=== PATIENT | female | born 1960 | race Caucasian/White ===

== ENCOUNTER 2018-08-19 19:32 | Emergency (ER) | payer BC ==
[2018-08-19 19:50] VITALS: BP 158/90
--- NOTE | 2018-08-19 20:02 | ED ---
HPI Chest Pain - HPI Summary HPI Summary: 57 yr old female with the complaint of pain across chest intermittently described as pressure, that has come and gone today, associated with hot flushed feeling, dizziness and at times SOB. She states this evening she had some pain in between her shoulder blades that felt like an ache. Presently she reports she feels fine without pain. She denies ever having discomfort like this before. - History of Current Complaint Chief Complaint: UCChestPain Time Seen by Provider: 08/19/18 19:36 Hx Last Menstrual Period: N/A Pain Intensity: 3 - Allergy/Home Medications Allergies/Adverse Reactions: Allergies Allergy/AdvReac Type Severity Reaction Status Date / Time Iodinated Contrast- Oral and Allergy Severe respiratory/"thought Verified 19:50 IV Dye I was going to " sumatriptan [From Imitrex] Allergy Severe "throat Verified 08/19/18 19:50 feels tight" Home Medications: Home Medications Benazepril (NF) [Lotensin (NF)] 5 mg PO DAILY 08/19/18 [History Confirmed ] Anjum/D3/Mag11/Zinc/Export Specialist/Kaushik/Bor [Caltrate 600+D Plus] 1 tab PO DAILY 08/19/18 [ History Confirmed 08/19/18] PMH/Surg Hx/FS Hx/Imm Hx Cardiovascular History: Reports: Hx Hypertension - Cancer History Hx Chemotherapy: No Hx Radiation Therapy: No - Surgical History Surgery Procedure, Year, and Place: uterine ablation, rt breast fibroid removed , wisdom teeth Infectious Disease History: No Infectious Disease History: Denies: Hx Clostridium Difficile, Hx Hepatitis, Hx Human Immunodeficiency Virus (HIV), Hx of Known/Suspected MRSA, Hx Shingles, Hx Tuberculosis, Hx Known/ Suspected VRE, Hx Known/Suspected VRSA, History Other Infectious Disease, Traveled Outside the [place] in Last 30 Days - Family History Known Family History: Positive: Other - hypertension - Social History Lives: With Family Alcohol Use: Rare Substance Use Type: Reports: None Smoking Status (MU): Never Smoked Tobacco Review of Systems Constitutional: Negative Positive: Chest Pain All Other Systems Reviewed And Are Negative: Yes Physical Exam Triage Information Reviewed: Yes Vital Signs On Initial Exam: Initial Vitals Temp Pulse Resp BP Pulse Ox 98.4 F 66 16 158/90 100 08/19/18 19:35 08/19/18 19:35 08/19/18 19:35 08/19/18 19:35 08/19/18 19:35 Vital Signs Reviewed: Yes Appearance: Positive: Well-Appearing, No Pain Distress Skin: Positive: Warm, Skin Color Reflects Adequate Perfusion Head/Face: Positive: Normal Head/Face Inspection Eyes: Positive: EOMI ENT: Positive: Normal ENT inspection, Pharynx normal Neck: Positive: Supple, Nontender Respiratory/Lung Sounds: Positive: Clear to Auscultation, Breath Sounds Present Cardiovascular: Positive: RRR. Negative: Murmur Abdomen Description: Positive: Nontender Musculoskeletal: Positive: Strength/ROM Intact Neurological: Positive: Sensory/Motor Intact, Alert, Oriented to Person Place, Time, CN Intact II-III, Normal Gait, Speech Normal Psychiatric: Positive: Normal - [place] Coma Scale Best Eye Response: 4 - Spontaneous Best Motor Response: 6 - Obeys Commands Best Verbal Response: 5 - Oriented Coma Scale Total: 15 Diagnostics - Vital Signs Vital Signs Temp Pulse Resp BP Pulse Ox 08/19/18 19:35 98.4 F 66 16 158/90 100 - Laboratory Lab Statement: Any lab studies that have been ordered have been reviewed, and results considered in the medical decision making process. - EKG 08/19/18 Cardiac Rate: NL EKG Rhythm: Sinus Rhythm ST Segment: Normal Ectopy: None Chest Pain Course/Dx - Course Course Of Treatment: 57 yr old female with history of HTN and having CP today. recommend ambulance and ER evaluation. She signed out AMA refusing transfer by ambulance to the hospital. - Diagnoses Provider Diagnoses: Chest pain, Hypertension Discharge - Sign-Out/Discharge Documenting (check all that apply): Patient Departure All imaging exams completed and their final reports reviewed: No Studies - Discharge Plan Condition: Good Disposition: AGAINST MEDICAL ADVICE Referrals: Eddie Kaur MD [Primary Care Provider] - - Billing Disposition and Condition Condition: GOOD Disposition: Against Medical Advice
== END 2018-08-19 20:00 | disposition left against medical advice (07) ==
LOC: UCCORT 19:32
DX: R07.9 Chest pain, unspecified (principal); I10 Essential (primary) hypertension; Z88.8 Allergy status to other drugs, medicaments and biological substances; Z91.041 Radiographic dye allergy status
CPT/HCPCS: 93005; 99212; G0463

== ENCOUNTER 2018-10-11 07:18 | Emergency (ER) | payer BC ==
--- OUTSIDE RECORDS SUMMARY | 2018-10-11 07:33 | XMS REPORT ---
:1960 External Reference #:[id number] Author Organization [facility] 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 Eddie Kaur MD Primary Care Physician Unavailable Payers Type Date Identification Numbers Payment Provider Subscriber Commercial Policy Number: [id number] Tray Barrios PayID: [id number] [address] [address] [place] [address] Problems Date Description Provider Status Onset: 10/05/2018 Gallstone Mike Machuca MD,FACS Active Onset: 09/10/2018 Disorder of gallbladder Mike Machuca MD,FACS Active Family History Date Family Member(s) Problem(s) Comments : (age 77 Years) Mother due to Cancer Paternal Grandfather Heart Disease Paternal Grandmother Cancer Maternal Grandmother Diabetes Social History Type Date Description Comments 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-handed ETOH Use Rarely consumes alcohol Smoking Patient denies history of smoking Recreational Drug Use Never Used Drugs Daily Caffeine Patient consumes minimal amounts of caffeine Allergies, Adverse Reactions, Alerts Date Description Reaction Status Severity Comments 09/10/2018 Contrast Dye active 09/10/2018 Coffee active 09/10/2018 Imitrex active Medications Medication Date Status Form Strength Qnty SIG Indications Ordering Provider Fish Oil Active Capsules 1000mg by Unknown 000 mouth every day Vitamin D3 Active Capsules 1000Unit 1 by Unknown 000 mouth every day Vitamin B12 Active Tablets ER 1000mcg 1 by Unknown 000 mouth once a day Caltrate 600 Active Tablets 1500(600Ca) 1 tab Unknown 000 mg by mouth every day Benazepril HCL Active Tablets 5mg 1 by Unknown 000 mouth every day Pantoprazole Active Tablets DR 40mg 1 by Unknown Sodium 000 mouth every day Vital Signs Date Vital Result Comment 10/05/2018 BP Systolic Sitting Right Arm 149 mmHg BP Diastolic Sitting Right Arm 82 mmHg Body Temperature 100.5 F Heart Rate 94 /min Height 62.5 inches 5'2.50" Weight 120.50 lb BMI (Body Mass Index) 21.7 kg/m2 BSA (Body Surface Area) 1.55 m2 [place] body weight in kilograms 51 O2 % BldC Oximetry 97 % 09/10/2018 BP Systolic 146 mmHg BP Diastolic 84 mmHg Heart Rate 60 /min Respiratory Rate 17 /min Height 62.5 inches 5'2.50" Weight 122.00 lb BMI (Body Mass Index) 22.0 kg/m2 BSA (Body Surface Area) 1.56 m2 [place] body weight in kilograms 51 O2 % BldC Oximetry 99 % Results Test Date Test Result H/L Range Note Comp Metabolic Panel 08/23/2018 Sodium 138 mmol/L 135-145 Chloride 100 mmol/L Low 101-111 Co2 Carbon Dioxide 32 mmol/L 22-32 Glucose 96 mg/dL 70-100 Blood Urea Nitrogen 13 mg/dL 6-24 Creatinine 0.62 mg/dL 0.51-0.95 BUN/Creatinine Ratio 21.0 High 8-20 Calcium 9.8 mg/dL 8.6-10.3 Total Protein 6.7 g/dL 6.4-8.9 Albumin 4.7 g/dL 3.2-5.2 Globulin 2.0 g/dL 2-4 Albumin/Globulin Ratio 2.4 1-3 Total Bilirubin 1.70 mg/dL High 0.2-1.0 Alkaline Phosphatase 80 U/L 34-104 Alt 23 U/L 7-52 Ast 20 U/L 13-39 Egfr Non- 99.2 >60 Egfr 120.1 >60 1 Potassium 5.1 mmol/L High 3.5-5.0 Anion Gap 6 mmol/L 2-11 Laboratory test finding 08/23/2018 C Reactive Protein 1.30 mg/L <8.01 CBC Auto Diff 08/23/2018 White Blood Count 5.8 10^3/uL 3.5-10.8 Red Blood Count 4.55 10^6/uL 4.00-5.40 Hemoglobin 13.5 g/dL 12.0-16.0 Hematocrit 40 % 35-47 Mean Corpuscular Volume 88 fL 80-97 Mean Corpuscular Hemoglobin 30 pg 27-31 Mean Corpuscular HGB Conc 34 g/dL 31-36 Red Cell Distribution Width 13 % 10.5-15 Platelet Count 250 10^3/uL 150-450 Mean Platelet Volume 10.0 um3 7.4-10.4 Abs Neutrophils 2.8 10^3/uL 1.5-7.7 Abs Lymphocytes 2.4 10^3/uL 1.0-4.8 Abs Monocytes 0.4 10^3/uL 0-0.8 Abs Eosinophils 0.1 10^3/uL 0-0.6 Abs Basophils 0 10^3/uL 0-0.2 Abs Nucleated RBC 0 10^3/uL Granulocyte % 48.4 % 38-83 Lymphocyte % 41.9 % 25-47 Monocyte % 7.1 % High 0-7 Eosinophil % 2.1 % 0-6 Basophil % 0.5 % 0-2 Nucleated Red Blood Cells % 0.1 CBC W/Automated Diff 08/20/2018 White Blood Count 5.4 K/uL 3.1-10.7 2 Red Blood Count 5.11 M/uL 3.90-5.40 2 Hemoglobin 15.2 gm/dL 11.6-15.8 2 Hematocrit 45.4 % 36.0-46.1 2 Mean Cell Volume 88.8 fl 80.9-99.0 2 Mean Corpuscular HGB 29.7 pg 25.9-32.7 2 Mean Corpuscular HGB Conc 33.5 g/dL 30.8-34.3 2 Platelet Count 272 K/uL 155-360 2 Red Cell Distri Width SD 41.1 fl 3-47 2 Red Cell Distri Width %CV 12.9 % 11.7-14.4 2 Mean Platelet Volume 11.5 fL 8.9-12.4 2 Neut% 50.9 % 40.4-72.8 2 Lymph % 40.5 % 20.0-42.0 2 [place] % 6.5 % 4.3-13.2 2 Eo% 1.7 % 0.0-6.6 2 Bas% 0.4 % 0.0-1.1 2 Neut# 2.74 K/uL 1.8-7.0 2 Lymph # 2.18 K/uL 1.0-4.0 2 [place] # 0.35 K/uL 0.3-0.9 2 Eos # 0.09 K/uL 0.0-0.5 2 Baso # 0.02 K/uL 0.0-0.1 2 Laboratory test finding 08/20/2018 Troponin-I < 0.015 ng/mL 2, 3 Comprehensive Metabolic Panel 08/20/2018 Glucose 126 mg/dL High 74-106 2 BUN 11 mg/dL 7-18 2 Creatinine 0.7 mg/dL 0.6-1.3 2 Glom Filtration Rate, Estimate >60 mL/min >60 2 If >60 mL/min >60 2, 4 BUN/Creat 15.7 ratio 2 Sodium 141 mmol/L 136-145 2 Potassium 3.9 mmol/L 3.5-5.1 2 Chloride 104 mmol/L 98-107 2 Carbon Dioxide 31 mmol/L 21-32 2 Anion Gap 6 mEq/L Low 8-16 2 Calcium 9.4 mg/dL 8.5-10.1 2 Total Protein 8.1 g/dL 6.4-8.2 2 Albumin 4.1 g/dL 3.4-5.0 2 Globulin 4.0 g/dL 1.9-4.3 2 Alb/Glob 1.0 ratio 2 Bilirubin,Total 2.4 mg/dL High 0.2-1.0 2 Sgot/Ast 21 U/L 15-37 2 SGPT/Alt 35 U/L 12-78 2 Alkaline Phosphatase 92 U/L 45-117 2 Laboratory test finding 08/20/2018 Magnesium 2.3 mg/dL 1.8-2.4 2 Lipase 146 U/L 56-289 2 1 Because ethnic data is not always readily available, this report includes an eGFR for both -Americans and non- Americans. The National Kidney Disease Education Program (NKDEP) does not endorse the use of the MDRD equation for patients that are not between the ages of 18 and 70, are , have extremes of body size, muscle mass, or nutritional status, or are non- or non-. According to the National Kidney Foundation, irrespective of diagnosis, the stage of the disease is based on the level of kidney function: Stage Description GFR(mL/min/1.73 m(2)) 1 Kidney damage with normal or decreased GFR 90 2 Kidney damage with mild decrease in GFR 60-89 3 Moderate decrease in GFR 30-59 4 Severe decrease in GFR 15-29 5 Kidney failure <15 (or dialysis) 2 UPPER ABDOMENAL/CHEST PAIN 3 0.0 - 0.045 ng/mL: Normal 0.046 - 0.5 ng/mL: Suggestive 0.6 - 1.5 ng/mL: Consistent 4 Note: Persistent reduction for 3 months or more in an eGFR <60 mL/min/1.73 m2 defines CKD. Patients with eGFR values >/=60 mL/min/1.73 m2 may also have CKD if evidence of persistent proteinuria is present. The original MDRD equation for estimated GFR is not valid for patients less than 18 years of age. Additional information may be found at www.kdoqi.org. Procedures Date CPT Code Description Status 09/23/2018 95311 Cholecystectomy with cholangiography Completed Encounters Type Date Location Provider CPT E/M Dx Office Visit 09/10/2018 8:15a Surgical Office Mike Machuca MD,FACS [id number] K82.8 Plan of Care 10/05/2018 - Mike Machuca MD,[id number] Calculus of gallbladder w/o cholecystitis w/o obstructionComments:now s/p laparoscopic cholecystectomy, doing well. healing well. pathology report was reviewed and discussed with the patient. her intermittent low grade fever in the last few days, does not seem to be abdominal in origin. if it persists i recommended that she follows with her primary care provider.
--- OUTSIDE RECORDS SUMMARY | 2018-10-11 07:33 | XMS REPORT | Continuity of Care Document ---
:1960 External Reference #:[id number] Author Name Eddie Kaur M.D. Address [address] [facility] [address] [place] [address] Care Team Providers Name Role Phone HCP given Primary Care Physician Unavailable Payers Type Date Identification Numbers Payment Provider Subscriber Effective: Policy Number: [id number] Tray Barrios 2011 Ind/Ppo/Hmo/Pos Group Name: [employer] [address] [address] PayID: [id number] [place] [address] Advance Directives Description No Information Available Problems Date Description Provider Status Onset: 11/20/2003 Excessive and frequent menstruation Onofre Sesay M.D. Active Onset: 11/20/2003 Migraine with typical aura Onofre Sesay M.D. 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 Active Onset: 03/15/2013 Arthralgia of the pelvic region and Marlyn Martin MD Active thigh Onset: 04/02/2013 Irritable bowel syndrome Onofre Sesay M.D. Active Onset: 04/02/2013 Degenerative joint disease Onofre Sesay M.D. Active involving multiple joints Onset: 04/02/2013 Thoracogenic scoliosis Onofre Sesay M.D. Active Family History Date Family Member(s) Problem(s) Comments Father Hypertension Father Low HDL Onset: Father [place] non smoker other cigars - (02/01/2015) lipids unknown - has hbp Father 1940 Father General health good Onset: (2006) Mother Pancreatic Cancer partial pancreatectomy Onset: Mother myelofibrosis bone marrow is affected (01/07/2011) may need bone marrow transplant Onset: (age 62 Mother cancer anus Years) Mother Hypertension Mother Diabetes, NOS Mother Nathalie Farnsworth Mother 1940 Mother General health good First Brother Allergies/Asthma First Brother Hypertension First Brother Jet Farnswotrh First Brother 1961 First Brother General chhaya good Paternal Grandfather due to Cancer () - AGE 81 Onset: (age 81 Paternal Grandfather Heart Disease mi Years) Paternal Grandfather Stroke Paternal Grandfather due to cancer - age 81 Paternal Grandmother due to Cancer () - AGE 80 Paternal Grandmother Heart Disease Paternal Grandmother due to cancer - age 80 Maternal Grandmother due to () Age 90 Maternal Grandmother Glaucoma Maternal Grandmother age 90 Social History Type Date Description Comments Sex Unknown Education Highest Level bachelor's degree Completed College Marital Status Smoke-Free Home is smoke-free 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 Abuse No history of abuse Tobacco Use Start: Unknown Smoked Cigarette X 1 as A Teen Recreational Drug Use Denies Drug Use Tobacco Use Reviewed: 02/01/15 Patient has never smoked Smoking Status Reviewed: 11/11/17 Patient has never smoked Sun Exposure Uses Suncreen Seat Belt/Car Seat always uses seat belt Currently Active Patient is currently sexually active Contraceptive Methods Current methods include vasectomy Age 1st [place] 17 Years Old # Partners in a Lifetime over 5 Additional Info Sexual preference is men Allergies, Adverse Reactions, Alerts Date Description Reaction Status Severity Comments 05/16/2010 Isovue Active 05/16/2010 Imitrex Active 08/24/2017 Anesthesia Active vomiting 08/28/2003 NKDA Inactive Medications Medication Date Status Form Strength Qnty SIG Indications Ordering Provider Fluticasone 10/05 Active Suspension 50mcg/Act 16uni two sprays J01.90 Silcoff, Propionate ts (50 Eddie, mcg/spray) M.D. per nostril once daily (can also try one spray per nostril bid) for allergies Benzonatate 10/05 Active Capsules 200mg 21cap 1 cap up R05 Silcoff, s to three Eddie, times a M.D. day for cough, when no longer productive Diclofenac Sodium 10/05 Active Gel 1% 100gm apply 2-3 M25.512 Silco g of gel Eddie, to M.D. affected area 4 times daily Sucralfate 08/23 Active Tablets 1gm 1 tablet by mouth four times a day Pantoprazole 08/[address] 40mg Daily Unknown Benazepril HCL 11/16 Active Tablets 5mg 90tab 1 every I10 Silco s day for Eddie, elevated M.D. blood pressure Fish Oil 03/26 Active po daily Vitamin D3 03/26 Active Tablets 1 po daily Unknown Caltrate 600 03/26 Active Tablets 1500(600C po daily a) mg Vitamin B-12 03/26 Active Tablets 500mcg po daily Unknown Diclofenac Sodium 10/05 Hx Solution 1.5% 150ml apply M25.512 Silcoff08-23 Eddie, - drops to M.D. 10/05 affected shoulder 4 times daily Amlodipine 11/10 Hx Capsules 2.5-10mg 60cap start one I10 Silcoff, Besylate/Benazepr s capsule jeremy Morgan Hydrochloride - every M.D. 11/16 7 days then 2 every morning Hydrochlorothiazi 11/05 Hx Tablets 25mg 90tab 1 tab by R03.0 Vincent, s mouth Eddie, - every M.D. 08/20 for high blood pressure Nystatin 09/28 Hx Suspension [id number] 250ml 5 R20.2 Vincent t/ML milliliter Eddie, - s (tsp) M.D. 09/28 four times a day for thrush, swish and swallow, use until resolved for at least 2 days Hydrochlorothiazi 09/28 Hx Tablets 12.5mg 60tab 1 tab by R03.0 Vincent s mouth Eddie, - every M.D. 11/05 7 days then increase to 2 qam for high blood pressure Collagen Ultra 10/09 Hx Capsules one po Unknown (OTC) daily - 08/23 Fluticasone 08/25 Hx Suspension 50mcg/Act 3unit 2 sprays J01.00 S[place]chak , Propionate s into each Juvencio, - nostril D.O. 09/04 twice a day for nasal congestion . derrick allergies. rinse mouth post Amoxicillin/Clavu 08/20 Hx Tablets 875-125mg 20tab 1 tablet Unknown lanate Potassium /2014 s po twice - daily x 10 Amoxicillin/Clavu 12/03 Hx Tablets 875-125mg 20tab 1 tab po 461.1 Silcoff, lanate Potassium s bid x 10d Tash Morgan M.DZhang 12/12 Lomotil 04/02 Hx Tablets 2.5-0.025 100ta 1 qid prn 564.1 mg bs abdominal A. - trouble Dayanara, 03/07 M.D. Protonix 01/[address] 40mg 30tab 1 qd for 789.07 s reflux for A. - esophagus Dayanara, 04/09 M.D. Amoxicillin/Potas 08/11 Hx Tablets 875mg 20tab one tablet 461.2 Howson, sium Clavulanate /2008 s po bid Colleen STROUD - with food 08/21 Augmentin 01/26 Hx Tablets 875mg 20tab 1 po bid 461.0 s Nellie Sesay, 02/05 M.D. Amoxicillin 10/27 Hx 500mg 30uni 1 tid 461.2 ts until gone Nellie Sesay, 11/10 M.D. Calcium Magnesium 05/07 Hx Tablets 334-134-5 OTC as Unknown & Zinc /2006 mg directed - 03/27 Advair Diskus 03/13 Hx Misc 250/50 1Samp 1 786.2 , le Inhalation Eddie, - bid M.D. 03/27 Nizoral 03/13 Hx Cream 2% 30gm Apply To 690.11 Affected Eddie, - Area On M.D. 05/16 Scalp bid prn Amoxil 03/01 Hx Tablets 500mg 30tab 1 po tid peri, s for 10 Eddie, - days for M.D. 03/11 sinusitis /2006 Ferrous Gluconate 02/02 Hx Tablets 325mg otc 1 PO qd 626.2 Milka Ballard - Dayanara 01/26 Francie 280.9 Propranolol 04/01/2006 - Hx Tablets 40mg 90tabs 1 po qd 346.10 Silcoff, 06/15/2006 Francie Morgan Amoxicillin 01/17/2006 - Hx Tablets 500mg 30tabs 1 PO tid For 461.1 Silcoff, 01/27/2006 Sinusitis Francie Morgan Inderal La 10/01/2005 - Hx Capsules 80mg 90caps 1 po qd to 346.10 Silcoff, 04/01/2006 pevent Eddie headaches Francie Propranolol 08/08/2005 - Hx Tablets 40mg 60tabs 1 po bid for 346.10 Silcoff, 10/01/2005 migraine Eddie prevention Francie Phenergan 08/08/2005 - Hx Suppositor 25mg 6units 1 pr q6h prn 346.10 Silcoff, 05/16/2010 for nausea Francie Morgan Relpax 07/11/2005 - Hx Tablets 40mg 12tabs 1 pill daily 784.0 Silcoff, 01/26/2009 as needed for kasey Morgans; may Francie repeat dose after 2 hours; do not take within 24hrs of maxalt 346.10 Biaxin 06/02/2005 - Hx Tablets 250mg 50tabs 1 po bid 461.1 Onofre Ballard 06/23/2005 until gone Francie Sesay Doxycycline 11/14/2004 - Hx Capsules 100mg 20caps 1 bid for ten 487.1 Onofre Ballard Hyclate 11/21/2004 days Francie Sesay void after ten days Biaxin 08/26/2004 - Hx Tablets 250mg 20tabs 1 po bid 461.0 Onofre Ballard 06/02/2005 until gone Dayanara for nasal M.D. congestion and sinuses Clarinex 10 MG 08/24/2004 - Hx Tablets 10mg 90tabs 1 po qd 477.9 Onofre Ballard 08/26/2004 Francie Sesay Augmentin 08/17/2004 - Hx Tablets 875mg 20tabs 1 po bid 461.0 dayanara 08/24/2004 Darvocet N 100 05/29/2004 - Hx Tablets 100mg;65 100tabs 1 qid prn 789.09 Onofre Ballard 08/26/2004 0 mg pain Francie Sesay Axert 05/04/2004 - Hx Tablets 12.5mg 4sample 1 po prn 346.10 Silcoff, 08/07/2004 migraine, march Eddie, repeat in 2 M.D. hours Phenergan 05/04/2004 - Hx Tablets 25mg 5tabs 1 po q4h prn 346.10 Silcoff, 08/26/2004 for migraines Francie Morgan Amoxicillin 03/26/2004 - Hx Capsules 500mg 30caps 1 tid For Ten 465.9 Onofre Ballard 05/04/2004 Days Francie Sesay Amoxil 12/08/2003 - Hx Tablets 500mg 30tabs 1 PO tid 784.0 Onofre Ballard 12/18/2003 Francie Sesay Provera 12/07/2003 - Hx Tablets 5mg 0tabs 1 PO qd Onofre Ballard 03/26/2004 7Bdays Each Ke Sesay M.DZhang Ibuprofen 12/07/2003 - Hx Tablets 800mg 45tabs 1 po tid 346.00 Onofre Ballard 05/04/2004 p.c.for pain Dayanara, or at onset M.D. of migraine Maxalt TAIL SAWYER 12/07/2003 - Hx Tablets 10mg 15tabs 1prn for 346.00 Onofre Ballard 01/26/2009 migraine as Dayanara directed BradenD. Ferrous 11/20/2003 - Hx Tablets 325mg 0tabs 2 qd 626.2 Onofre Ballard Sulfate 02/02/2007 Francie Sesay 280.9 Imitrex 11/20/2003 - Hx Tablets 50mg 10tabs 1 prn at first 346.00 Onofre Ballard 08/24/2004 sign of Dayanara, migraine, march M.D. repeat prn after 2 hours Provera 11/20/2003 - Hx Tablets 10mg 40tabs 1 qd for the 626.2 Onofre Ballard 12/07/2003 last ten days Dayanara, before your M.D. period Ginko Biloba - Hx Unknown 05/16/2010 Multivitamins - Hx Tablets 30tabs 1 po qd Unknown 07/10/2011 Immunizations CPT Code Status Date Vaccine Lot # [id number] Given 09/18/2018 Influenza Virus Vaccine, Quadrivalent, Split, Preservative Free 26972 Given 09/05/2017 Flu, Split Virus 3Yrs 92827 Given 08/29/2015 Flu, Split Virus 3Yrs 38108 Given 10/23/2014 Hep B Immunization, Adult 68248 Given 01/07/2011 Adacel or Boostrix, TDaP [id number] 82828 Given 05/25/2008 Td Immunization Td-187 03491 Given 09/07/2000 Td Immunization 80832 Refused 07/27/2014 Flu, Split Virus 3Yrs 78780 Refused 01/26/2014 Flu, Split Virus 3Yrs Vital Signs Date Vital Result Comment 10/05/2018 11:38am BP Systolic 130 mmHg BP Diastolic 70 mmHg Body Temperature 98.6 F Weight 122.00 lb 08/26/2018 3:53pm BP Systolic 130 mmHg BP Diastolic 74 mmHg Height 62.50 inches 5'2.50" Weight 120.00 lb BMI (Body Mass Index) 21.6 kg/m2 11/10/2017 4:37pm BP Systolic 132 mmHg BP Diastolic 70 mmHg O2 % BldC Oximetry 98 % Body Temperature 77.0 F Weight 123.00 lb 10/22/2017 3:51pm BP Systolic 140 mmHg BP Diastolic 88 mmHg Weight 121.00 lb 09/28/2017 3:55pm BP Systolic 130 mmHg office electronic cuff; manual 118/ 80 BP Diastolic 83 mmHg office electronic cuff; manual 118/80 BP Systolic Recheck 120 mmHg wrist cuff; 133/97 BP Diastolic Recheck 91 mmHg wrist cuff; 133/97 Heart Rate 73 /min Weight 123.00 lb 09/05/2017 11:22am BP Systolic 148 mmHg pt wrist monitor 112/92 BP Diastolic 84 mmHg pt wrist monitor 112/92 Heart Rate 68 /min Weight 124.00 lb 08/24/2017 5:45pm BP Systolic 136 mmHg BP Diastolic 76 mmHg BP Systolic Recheck 164 mmHg R arm sitting BP Diastolic Recheck 94 mmHg R arm sitting BP Systolic Standing Resting Right Arm 150 mmHg BP Diastolic Standing Resting Right Arm 90 mmHg Heart Rate 74 /min reg Respiratory Rate 12 /min not laboured Height 62.75 inches 5'2.75" Weight 126.00 lb BMI (Body Mass Index) 22.5 kg/m2 10/10/2016 4:18pm BP Systolic 128 mmHg BP Diastolic 88 mmHg Body Temperature 98.1 F Height 62.75 inches 5'2.75" Weight 130.00 lb BMI (Body Mass Index) 23.2 kg/m2 03/27/2016 2:51pm BP Systolic 148 mmHg k x 2 BP Diastolic 85 mmHg k x 2 Heart Rate 80 /min Respiratory Rate 16 /min Height 63 inches 5'3" Weight 129.00 lb BMI (Body Mass Index) 22.8 kg/m2 08/25/2015 10:51am BP Systolic 128 mmHg BP Diastolic 88 mmHg Body Temperature 98.1 F Weight 134.00 lb 02/01/2015 4:14pm BP Systolic 140 mmHg BP Diastolic 80 mmHg Heart Rate 80 /min Respiratory Rate 16 /min Height 63 inches 5'3" Weight 134.00 lb BMI (Body Mass Index) 23.7 kg/m2 07/27/2014 10:26am BP Systolic 126 mmHg BP Diastolic 80 mmHg Body Temperature 98.1 F Height 63 inches 5'3" Weight 130.00 lb BMI (Body Mass Index) 23.0 kg/m2 04/13/2014 3:56pm BP Systolic 139 mmHg BP Diastolic 84 mmHg Heart Rate 65 /min Body Temperature 98.1 F Weight 132.00 lb 03/14/2014 4:22pm BP Systolic 134 mmHg BP Diastolic 84 mmHg 03/07/2014 3:38pm BP Systolic 112 mmHg BP Diastolic 90 mmHg Body Temperature 98.1 F Weight 132.00 lb 01/26/2014 4:02pm BP Systolic 130 mmHg BP Diastolic 80 mmHg Heart Rate 80 /min Height 63 inches 5'3" Weight 133.00 lb BMI (Body Mass Index) 23.6 kg/m2 12/03/2013 9:52am BP Systolic 131 mmHg BP Diastolic 81 mmHg Heart Rate 95 /min Body Temperature 98.9 F Height 63 inches 5'3" Weight 135.00 lb BMI (Body Mass Index) 23.9 kg/m2 07/07/2013 10:22am BP Systolic 126 mmHg BP Diastolic 84 mmHg Weight 127.00 lb 05/30/2013 9:04am BP Systolic 130 mmHg BP Diastolic 80 mmHg Weight 123.00 lb 04/02/2013 10:54am BP Systolic 120 mmHg BP Diastolic 86 mmHg BP Systolic Recheck 120 mmHg BP Diastolic Recheck 82 mmHg Heart Rate 70 /min Respiratory Rate 16 /min Weight 123.00 lb 03/15/2013 11:41am BP Systolic 150 mmHg BP Diastolic 90 mmHg Body Temperature 98.2 F Height 62.75 inches 5'2.75" Weight 124.00 lb BMI (Body Mass Index) 22.1 kg/m2 05/06/2012 2:44pm BP Systolic 120 mmHg BP Diastolic 84 mmHg Body Temperature 98.2 F Weight 132.00 lb 03/27/2012 11:18am BP Systolic 108 mmHg BP Diastolic 70 mmHg Heart Rate 80 /min Respiratory Rate 16 /min Body Temperature 98.5 F Weight 134.00 lb 01/19/2012 2:44pm BP Systolic 126 mmHg BP Diastolic 78 mmHg Heart Rate 76 /min Respiratory Rate 16 /min Height 63 inches 5'3" Weight 134.00 lb BMI (Body Mass Index) 23.7 kg/m2 Last Menstrual Period 0 07/11/2011 11:07am BP Systolic 140 mmHg BP Diastolic 90 mmHg Body Temperature 98.2 F Weight 130.00 lb Last Menstrual Period 0 01/07/2011 3:00pm BP Systolic 128 mmHg BP Diastolic 80 mmHg Heart Rate 80 /min Respiratory Rate 16 /min Height 62.75 inches 5'2.75" Weight 130.00 lb BMI (Body Mass Index) 23.2 kg/m2 05/16/2010 1:04pm BP Systolic 108 mmHg BP Diastolic 70 mmHg Body Temperature 98.4 F Height 62.25 inches 5'2.25" Weight 131.00 lb BMI (Body Mass Index) 23.8 kg/m2 01/21/2010 10:08am BP Systolic 124 mmHg BP Diastolic 88 mmHg O2 % BldC Oximetry 93 % Weight 132.00 lb 08/11/2009 10:23am BP Systolic 130 mmHg BP Diastolic 80 mmHg Body Temperature 98.7 F Weight 126.00 lb 03/29/2009 1:14pm BP Systolic 110 mmHg BP Diastolic 78 mmHg Height 63 inches 5'3" Weight 126.00 lb BMI (Body Mass Index) 22.3 kg/m2 01/26/2009 3:05pm BP Systolic 118 mmHg BP Diastolic 84 mmHg Body Temperature 98.0 F Height 63 inches 5'3" Weight 126.00 lb BMI (Body Mass Index) 22.3 kg/m2 10/27/2008 11:12am BP Systolic 134 mmHg BP Diastolic 80 mmHg Body Temperature 98.1 F Height 63 inches 5'3" Weight 127.00 lb BMI (Body Mass Index) 22.5 kg/m2 Last Menstrual Period 0 07/17/2008 3:54pm BP Systolic 114 mmHg BP Diastolic 72 mmHg Height 63 inches 5'3" 07/04/2008 3:31pm BP Systolic 104 mmHg BP Diastolic 84 mmHg Height 63 inches 5'3" Weight 131.00 lb BMI (Body Mass Index) 23.2 kg/m2 Last Menstrual Period 0 04/15/2008 9:09am BP Systolic 100 mmHg BP Diastolic 70 mmHg Heart Rate 80 /min Respiratory Rate 16 /min afebrile Height 63 inches 5'3" Weight 130.00 lb BMI (Body Mass Index) 23.0 kg/m2 07/09/2007 9:11am BP Systolic 112 mmHg BP Diastolic 78 mmHg Height 63 inches 5'3" Weight 128.00 lb BMI (Body Mass Index) 22.7 kg/m2 05/07/2007 10:21am BP Systolic 100 mmHg BP Diastolic 74 mmHg Height 63 inches 5'3" Weight 133.50 lb BMI (Body Mass Index) 23.6 kg/m2 04/01/2007 3:31pm BP Systolic 104 mmHg BP Diastolic 74 mmHg Body Temperature 98.1 F Height 63 inches 5'3" Weight 135.00 lb BMI (Body Mass Index) 23.9 kg/m2 03/13/2007 12:15pm BP Systolic 136 mmHg BP Diastolic 82 mmHg Heart Rate 72 /min Respiratory Rate 18 /min Body Temperature 99.1 F States NL Is 97 Height 63 inches 5'3" 02/12/2007 4:27pm BP Systolic 130 mmHg BP Diastolic 86 mmHg Heart Rate 76 /min reg Respiratory Rate 14 /min not laboured Body Temperature 98.9 F Height 63 inches 5'3" 02/02/2007 2:52pm BP Systolic 124 mmHg BP Diastolic 80 mmHg Heart Rate 80 /min Respiratory Rate 16 /min Height 63 inches 5'3" Weight 135.00 lb BMI (Body Mass Index) 23.9 kg/m2 Last Menstrual Period [id number] 01/09/2007 11:44am BP Systolic 130 mmHg BP Diastolic 80 mmHg Heart Rate 80 /min Respiratory Rate 16 /min Height 63 inches 5'3" Weight 134.50 lb BMI (Body Mass Index) 23.8 kg/m2 11/19/2006 5:08pm BP Systolic 120 mmHg BP Diastolic 80 mmHg Height 63 inches 5'3" Weight 135.50 lb BMI (Body Mass Index) 24.0 kg/m2 08/12/2006 5:25pm BP Systolic 98 mmHg BP Diastolic 62 mmHg Body Temperature 98.6 F 07/28/2006 4:43pm BP Systolic 130 mmHg BP Diastolic 82 mmHg Body Temperature 98.0 F Height 63 inches 5'3" Weight 134.00 lb BMI (Body Mass Index) 23.7 kg/m2 Last Menstrual Period [id number] 06/15/2006 4:57pm BP Systolic 92 mmHg BP Diastolic 70 mmHg Height 63 inches 5'3" Weight 132.00 lb BMI (Body Mass Index) 23.4 kg/m2 06/15/2006 4:40pm Height 63 inches 5'3" 04/01/2006 4:11pm BP Systolic 100 mmHg BP Diastolic 62 mmHg Height 63 inches 5'3" Weight 135.00 lb BMI (Body Mass Index) 23.9 kg/m2 01/17/2006 10:59am BP Systolic 116 mmHg BP Diastolic 70 mmHg Body Temperature 97.8 F Height 63 inches 5'3" 12/30/2005 9:50am BP Systolic 120 mmHg BP Diastolic 56 mmHg Height 63 inches 5'3" Weight 137.00 lb BMI (Body Mass Index) 24.3 kg/m2 Last Menstrual Period [id number] 10/01/2005 10:14am BP Systolic 102 mmHg BP Diastolic 64 mmHg Heart Rate 64 /min reg Height 63 inches 5'3" Weight 134.00 lb BMI (Body Mass Index) 23.7 kg/m2 08/08/2005 4:47pm BP Systolic 120 mmHg BP Diastolic 70 mmHg Height 63 inches 5'3" Weight 129.00 lb BMI (Body Mass Index) 22.8 kg/m2 07/11/2005 5:07pm BP Systolic 118 mmHg BP Diastolic 74 mmHg Body Temperature 98.4 F Height 63 inches 5'3" Weight 131.00 lb BMI (Body Mass Index) 23.2 kg/m2 06/02/2005 4:55pm BP Systolic 100 mmHg BP Diastolic 64 mmHg Heart Rate 80 /min Respiratory Rate 16 /min Body Temperature 97.9 F Height 63 inches 5'3" Weight 131.00 lb BMI (Body Mass Index) 23.2 kg/m2 01/28/2005 4:20pm BP Systolic 114 mmHg BP Diastolic 78 mmHg Body Temperature 98.5 F Height 63 inches 5'3" Weight 132.00 lb BMI (Body Mass Index) 23.4 kg/m2 01/02/2005 10:39am BP Systolic 124 mmHg BP Diastolic 78 mmHg Heart Rate 80 /min Respiratory Rate 16 /min Height 63 inches 5'3" Weight 131.00 lb BMI (Body Mass Index) 23.2 kg/m2 12/06/2004 1:07pm BP Systolic 138 mmHg BP Diastolic 90 mmHg Height 63 inches 5'3" Weight 131.00 lb BMI (Body Mass Index) 23.2 kg/m2 11/14/2004 3:20pm BP Systolic 120 mmHg BP Diastolic 80 mmHg Heart Rate 80 /min RRR Respiratory Rate 16 /min Easy Body Temperature 99.2 F PO Height 63 inches 5'3" Weight 132.00 lb BMI (Body Mass Index) 23.4 kg/m2 09/19/2004 1:40pm BP Systolic 130 mmHg BP Diastolic 90 mmHg Height 63 inches 5'3" Weight 132.00 lb BMI (Body Mass Index) 23.4 kg/m2 08/26/2004 4:38pm BP Systolic 118 mmHg BP Diastolic 75 mmHg Body Temperature 98.2 F Height 63 inches 5'3" Weight 132.00 lb BMI (Body Mass Index) 23.4 kg/m2 08/17/2004 11:14am BP Systolic 118 mmHg BP Diastolic 82 mmHg Body Temperature 98.3 F Weight 130.00 lb 06/22/2004 8:39am BP Systolic 114 mmHg Recheck BP Please BP Diastolic 80 mmHg Recheck BP Please Weight 128.00 lb 05/28/2004 1:27pm BP Systolic 108 mmHg BP Diastolic 70 mmHg Heart Rate 80 /min Respiratory Rate 16 /min Weight 129.00 lb 05/04/2004 11:47am BP Systolic 118 mmHg R Arm Sitting BP Diastolic 70 mmHg R Arm Sitting Body Temperature 99.0 F PO Height 62 inches 5'2" Weight 128.00 lb BMI (Body Mass Index) 23.4 kg/m2 03/26/2004 5:20pm BP Systolic 108 mmHg BP Diastolic 70 mmHg Body Temperature 97.4 F Weight 129.00 lb 12/07/2003 11:55am BP Systolic 118 mmHg R Arm BP Diastolic 80 mmHg R Arm Heart Rate 70 /min Respiratory Rate 16 /min Body Temperature 97.0 F PO Height 63 inches 5'3" Weight 130.00 lb BMI (Body Mass Index) 23.0 kg/m2 Last Menstrual Period [id number] nl 11/20/2003 1:28pm BP Systolic 118 mmHg BP Diastolic 80 mmHg Heart Rate 70 /min Respiratory Rate 16 /min Height 63 inches 5'3" Weight 130.00 lb BMI (Body Mass Index) 23.0 kg/m2 Last Menstrual Period [id number] Heavy & Lasted 6 Days 08/28/2003 3:44pm BP Systolic 128 mmHg BP Diastolic 78 mmHg Weight 129.00 lb Last Menstrual Period 0 Results Test Date Facility Test Result H/L Range Note Laboratory test 08/26/2018 In House Hemoglobin A1c 5.2 finding Comp Metabolic 08/23/2018 [facility] Sodium 138 mmol/L N 135-145 Panel [phone] Chloride 100 mmol/L Low 101-111 Co2 Carbon Dioxide 32 mmol/L N 22-32 Glucose 96 mg/dL N 70-100 Blood Urea Nitrogen 13 mg/dL N 6-24 Creatinine 0.62 mg/dL N 0.51-0.95 BUN/Creatinine Ratio 21.0 High 8-20 Calcium 9.8 mg/dL N 8.6-10.3 Total Protein 6.7 g/dL N 6.4-8.9 Albumin 4.7 g/dL N 3.2-5.2 Globulin 2.0 g/dL N 2-4 Albumin/Globulin Ratio 2.4 N 1-3 Total Bilirubin 1.70 mg/dL High 0.2-1.0 Alkaline Phosphatase 80 U/L N 34-104 Alt 23 U/L N 7-52 Ast 20 U/L N 13-39 Egfr Non- 99.2 >60 Egfr 120.1 >60 1 Potassium 5.1 mmol/L High 3.5-5.0 Anion Gap 6 mmol/L N 2-11 Laboratory test 08/23/2018 [facility] C Reactive 1.30 mg/L N <8.01 finding [phone] Protein CBC Auto Diff 08/23/2018 [facility] White Blood 5.8 10^3/uL N 3.5- 10.8 [phone] Count Red Blood Count 4.55 10^6/uL N 4.00-5.40 Hemoglobin 13.5 g/dL N 12.0-16.0 Hematocrit 40 % N 35-47 Mean Corpuscular Volume 88 fL N 80-97 Mean Corpuscular Hemoglobin 30 pg N 27-31 Mean Corpuscular HGB Conc 34 g/dL N 31-36 Red Cell Distribution Width 13 % N 10.5-15 Platelet Count 250 10^3/uL N 150-450 Mean Platelet Volume 10.0 um3 N 7.4-10.4 Abs Neutrophils 2.8 10^3/uL N 1.5-7.7 Abs Lymphocytes 2.4 10^3/uL N 1.0-4.8 Abs Monocytes 0.4 10^3/uL N 0-0.8 Abs Eosinophils 0.1 10^3/uL N 0-0.6 Abs Basophils 0 10^3/uL N 0-0.2 Abs Nucleated RBC 0 10^3/uL Granulocyte % 48.4 % N 38-83 Lymphocyte % 41.9 % N 25-47 Monocyte % 7.1 % High 0-7 Eosinophil % 2.1 % N 0-6 Basophil % 0.5 % N 0-2 Nucleated Red Blood Cells % 0.1 CBS W/Automated 08/20/2018 [facility]. White Blood 5.4 K/uL N 3.1-10.7 2 Diff LABORATORY Count [phone] Red Blood Count 5.11 M/uL N 3.90-5.40 Hemoglobin 15.2 gm/dL N 11.6-15.8 Hematocrit 45.4 % 36.0-46.1 Mean Cell Volume 88.8 fl N 80.9-99.0 Mean Corpuscular HGB 29.7 pg N 25.9-32.7 Mean Corpuscular HGB Conc 33.5 g/dL N 30.8-34.3 Platelet Count 272 K/uL N 155-360 Red Cell Distri Width SD 41.1 fl N 3-47 Red Cell Distri Width %CV 12.9 % N 11.7-14.4 Mean Platelet Volume 11.5 fL N 8.9-12.4 Neut% 50.9 % N 40.4-72.8 Lymph % 40.5 % N 20.0-42.0 Bradley % 6.5 % N 4.3-13.2 Eo% 1.7 % N 0.0-6.6 Bas% 0.4 % N 0.0-1.1 Neut# 2.74 K/uL N 1.8-7.0 Lymph # 2.18 K/uL N 1.0-4.0 Bradley # 0.35 K/uL N 0.3-0.9 Eos # 0.09 K/uL N 0.0-0.5 Baso # 0.02 K/uL N 0.0-0.1 Laboratory test 08/20/2018 [facility]. Troponin-I < 0.015 3 finding LABORATORY ng/mL [phone] Comprehensive 08/20/2018 [facility]. Glucose 126 mg/dL High 74-106 Metabolic Panel LABORATORY [phone] BUN 11 mg/dL N 7-18 Creatinine 0.7 mg/dL N 0.6-1.3 Glom Filtration Rate, Estimate >60 mL/min >60 If >60 mL/min >60 4 BUN/Creat 15.7 ratio Sodium 141 mmol/L N 136-145 Potassium 3.9 mmol/L N 3.5-5.1 Chloride 104 mmol/L N 98-107 Carbon Dioxide 31 mmol/L N 21-32 Anion Gap 6 mEq/L Low 8-16 Calcium 9.4 mg/dL N 8.5-10.1 Total Protein 8.1 g/dL N 6.4-8.2 Albumin 4.1 g/dL N 3.4-5.0 Globulin 4.0 g/dL N 1.9-4.3 Alb/Glob 1.0 ratio Bilirubin,Total 2.4 mg/dL High 0.2-1.0 Sgot/Ast 21 U/L N 15-37 SGPT/Alt 35 U/L N 12-78 Alkaline Phosphatase 92 U/L N 45-117 Laboratory test 08/20/2018 [facility]. Magnesium 2.3 mg/dL N 1.8-2.4 finding LABORATORY [phone] Lipase 146 U/L N 56-289 Aot Request 08/20/2018 [facility]. Aot Request Test(s) added 5, 6 LABORATORY [phone] Tests to be added: CRP Laboratory test 08/20/2018 [facility] Troponin-I < 0.015 7 finding LABORATORY ng/mL [phone] Laboratory test 08/19/2018 [facility] D-Dimer, < 0.27 8 finding LABORATORY Quantitative ug/mL [phone] CBS W/Automated 08/19/2018 [facility] White Blood Count 6.1 K/ uL N 3.1-1 Diff LABORATORY 0.7 [phone] Red Blood Count 4.57 M/uL N 3.90-5.40 Hemoglobin 13.6 gm/dL N 11.6-15.8 Hematocrit 40.0 % N 36.0-46.1 Mean Cell Volume 87.5 fl N 80.9-99.0 Mean Corpuscular HGB 29.8 pg N 25.9-32.7 Mean Corpuscular HGB Conc 34.0 g/dL N 30.8-34.3 Platelet Count 251 K/uL N 155-360 Red Cell Distri Width SD 39.1 fl N 3-47 Red Cell Distri Width %CV 12.5 % N 11.7-14.4 Mean Platelet Volume 11.3 fL N 8.9-12.4 Neut% 46.9 % N 40.4-72.8 Lymph % 43.8 % High 20.0-42.0 Bradley % 7.5 % N 4.3-13.2 Eo% 1.6 % N 0.0-6.6 Bas% 0.2 % N 0.0-1.1 Neut# 2.86 K/uL N 1.8-7.0 Lymph # 2.67 K/uL N 1.0-4.0 Bradley # 0.46 K/uL N 0.3-0.9 Eos # 0.10 K/uL N 0.0-0.5 Baso # 0.01 K/uL N 0.0-0.1 Laboratory test 08/19/2018 [facility] Lipase 159 U/L N 56- 289 finding LABORATORY [phone] Laboratory test 03/09/2018 [facility] Cytology SEE RESULT 9 finding [phone] BELOW Laboratory test 09/30/2017 [facility] TSH (Thyroid 1.66 N 0.34-5.60 finding [phone] Stim Horm) mcIU/mL T3 Free 3.10 pg/mL N 2.5-3.9 Free T4 (Free Thyroxine) 0.86 ng/dL N 0.61-1.12 Thyroxine 8.33 g/mL N 6.09-12.23 Comp Metabolic Panel 09/12/2017 [facility] Sodium 139 mmol/L N 133- 145 [phone] Potassium 3.8 mmol/L N 3.5-5.0 Chloride 102 mmol/L N 101-111 Co2 Carbon Dioxide 29 mmol/L N 22-32 Anion Gap 8 mmol/L N 2-11 Glucose 87 mg/dL N 70-100 Blood Urea Nitrogen 12 mg/dL N 6-24 Creatinine 0.64 mg/dL N 0.51-0.95 BUN/Creatinine Ratio 18.8 N 8-20 Calcium 9.8 mg/dL N 8.6-10.3 Total Protein 7.4 g/dL N 6.4-8.9 Albumin 4.7 g/dL N 3.2-5.2 Globulin 2.7 g/dL N 2-4 Albumin/Globulin Ratio 1.7 N 1-3 Total Bilirubin 1.60 mg/dL High 0.2-1.0 Alkaline Phosphatase 83 U/L N 34-104 Alt 32 U/L N 7-52 Ast 28 U/L N 13-39 Egfr Non- 96.0 N >60 Egfr 123.4 N >60 10 Laboratory test 09/12/2017 [facility] Hemoglobin A1c 5.2 % N 4.0-5.6 11 finding [phone] (Glyco HGB) Lipid Profile 09/12/2017 [facility] Triglycerides 63 mg/dL N 12 (Trig/Chol/HDL) [phone] Cholesterol 219 mg/dL N 13 HDL Cholesterol 71.0 mg/dL N 14 LDL Cholesterol 135 mg/dL N 15 Ssa/SSB Abs Igg 08/26/2017 [facility] SS-A/Ro Antibody <0.2 U N 16 [phone] SS-B/La Antibody <0.2 U N 17 Laboratory test 08/26/2017 [facility] Vitamin B12 973 pg/mL High 180- 914 18 finding [phone] CBC Auto Diff 08/26/2017 [facility] White Blood 5.4 10^3/uL N 3.5- 10.8 [phone] Count Red Blood Count 4.56 10^6/uL N 4.0-5.4 Hemoglobin 13.3 g/dL N 12.0-16.0 Hematocrit 40 % N 35-47 Mean Corpuscular Volume 87 fL N 80-97 Mean Corpuscular Hemoglobin 29 pg N 27-31 Mean Corpuscular HGB Conc 34 g/dL N 31-36 Red Cell Distribution Width 13 % N 10.5-15 Platelet Count 231 10^3/uL N 150-450 Mean Platelet Volume 10 um3 N 7.4-10.4 Abs Neutrophils 2.2 10^3/uL N 1.5-7.7 Abs Lymphocytes 2.7 10^3/uL N 1.0-4.8 Abs Monocytes 0.4 10^3/uL N 0-0.8 Abs Eosinophils 0.1 10^3/uL N 0-0.6 Abs Basophils 0 10^3/uL N 0-0.2 Abs Nucleated RBC 0 10^3/uL N Granulocyte % 40.0 % N 38-83 Lymphocyte % 50.1 % High 25-47 Monocyte % 7.6 % N 1-9 Eosinophil % 1.8 % N 0-6 Basophil % 0.5 % N 0-2 Nucleated Red Blood Cells % 0 N Cell Morphology 08/26/2017 [facility] Platelet Morphology Large N [phone] Urine Micro Inhouse 10/10/2016 In House Ua WBC - 19 Ua RBC 0-2 Ua Casts - Ua Epi 0-1 Ua Other - Ua Glucose - Ua Bilirubin - Ua Ketones - Ua Specific [place] 1.005 Ua Blood - Ua PH 6.0 Ua Protein - Ua Urobilinogen - Ua Nitrite - Ua Leukocytes - Urine Micro Inhouse 03/27/2016 In House Ua WBC - Ua RBC - Ua Casts - Ua Epi - Ua Other - Ua Glucose - Ua Bilirubin - Ua Ketones - Ua Specific [place] 1.010 Ua Blood - Ua PH 6.0 Ua Protein - Ua Urobilinogen - Ua Nitrite - Ua Leukocytes - Lipid Profile (Trig/Chol/HDL) 03/27/2016 [facility] Triglycerides 84 mg /dL N 20 [phone] Cholesterol 221 mg/dL N 21 HDL Cholesterol 63.3 mg/dL N 22 LDL Cholesterol 141 mg/dL N 23 Laboratory test 03/27/2016 [facility] TSH (Thyroid 1.37 ?IU/mL N 0.34 -5.60 finding [phone] Stim Horm) Comp Metabolic 03/27/2016 [facility] Sodium 137 mmol/L N 133-145 Panel [phone] Potassium 4.6 mmol/L N 3.5-5.0 Chloride 99 mmol/L Low 101-111 Co2 Carbon Dioxide 31 mmol/L N 22-32 Anion Gap 7 mmol/L N 2-11 Glucose 76 mg/dL N 70-100 Blood Urea Nitrogen 12 mg/dL N 6-24 Creatinine 0.61 mg/dL N 0.51-0.95 BUN/Creatinine Ratio 19.7 N 8-20 Calcium 9.6 mg/dL N 8.6-10.3 Total Protein 6.9 g/dL N 6.4-8.9 Albumin 4.8 g/dL N 3.2-5.2 Globulin 2.1 g/dL N 2-4 Albumin/Globulin Ratio 2.3 N 1-3 Total Bilirubin 1.50 mg/dL High 0.2-1.0 Alkaline Phosphatase 92 U/L N 34-104 Alt 30 U/L N 7-52 Ast 22 U/L N 13-39 Egfr Non- 101.8 N >60 Egfr 131.0 N >60 24 CBC Auto Diff 03/27/2016 [facility] White Blood Count 5.1 10^3/uL N 3.5-10.8 [phone] Red Blood Count 4.62 10^6/uL N 4.0-5.4 Hemoglobin 13.3 g/dL N 12.0-16.0 Hematocrit 41 % N 35-47 Mean Corpuscular Volume 89 fL N 80-97 Mean Corpuscular Hemoglobin 29 pg N 27-31 Mean Corpuscular HGB Conc 32 g/dL N 31-36 Red Cell Distribution Width 13 % N 10.5-15 Platelet Count 259 10^3/uL N 150-450 Mean Platelet Volume 10 um3 N 7.4-10.4 Abs Neutrophils 2.3 10^3/uL N 1.5-7.7 Abs Lymphocytes 2.3 10^3/uL N 1.0-4.8 Abs Monocytes 0.4 10^3/uL N 0-0.8 Abs Eosinophils 0.1 10^3/uL N 0-0.6 Abs Basophils 0 10^3/uL N 0-0.2 Abs Nucleated RBC 0.02 10^3/uL N Granulocyte % 44.7 % N 38-83 Lymphocyte % 45.4 % N 25-47 Monocyte % 8.0 % N 1-9 Eosinophil % 1.0 % N 0-6 Basophil % 0.9 % N 0-2 Nucleated Red Blood Cells % 0.4 N CBC Auto Diff 04/13/2014 [facility] White Blood Count 6.5 10^3/uL 4.8-10.8 [phone] Red Blood Count 4.57 10^6/uL 4.0-5.4 Hemoglobin 13.4 g/dL 12.0-16.0 Hematocrit 40 % 35-47 Mean Corpuscular Volume 88 fL 80-97 Mean Corpuscular Hemoglobin 29 pg 27-31 Mean Corpuscular HGB Conc 34 g/dL 31-36 Red Cell Distribution Width 13 % 10.5-15 Platelet Count 246 10^3/uL 150-450 Mean Platelet Volume 10 um3 7.4-10.4 Abs Neutrophils 3.6 10^3/uL 1.5-7.7 Abs Lymphocytes 2.3 10^3/uL 1.0-4.8 Abs Monocytes 0.5 10^3/uL 0-0.8 Abs Eosinophils 0.1 10^3/uL 0-0.6 Abs Basophils 0 10^3/uL 0-0.2 Abs Nucleated RBC 0.01 10^3/uL Granulocyte % 56.1 % 38-83 Lymphocyte % 35.6 % 25-47 Monocyte % 6.9 % 1-9 Eosinophil % 1.0 % 0-6 Basophil % 0.4 % 0-2 Nucleated Red Blood Cells % 0.1 CBC Auto Diff 03/08/2014 [facility] White Blood Count 5.5 10^3/uL 4.8-10.8 [phone] Red Blood Count 4.36 10^6/uL 4.0-5.4 Hemoglobin 12.9 g/dL 12.0-16.0 Hematocrit 38 % 35-47 Mean Corpuscular Volume 88 fL 80-97 Mean Corpuscular Hemoglobin 30 pg 27-31 Mean Corpuscular HGB Conc 34 g/dL 31-36 Red Cell Distribution Width 13 % 10.5-15 Platelet Count 236 10^3/uL 150-450 Mean Platelet Volume 10 um3 7.4-10.4 Abs Neutrophils 2.7 10^3/uL 1.5-7.7 Abs Lymphocytes 2.3 10^3/uL 1.0-4.8 Abs Monocytes 0.4 10^3/uL 0-0.8 Abs Eosinophils 0.1 10^3/uL 0-0.6 Abs Basophils 0 10^3/uL 0-0.2 Abs Nucleated RBC 0 10^3/uL Granulocyte % 48.2 % 38-83 Lymphocyte % 42.1 % 25-47 Monocyte % 7.5 % 1-9 Eosinophil % 1.7 % 0-6 Basophil % 0.5 % 0-2 Nucleated Red Blood Cells % 0.1 Comp Metabolic Panel 03/08/2014 [facility] Sodium 139 mmol/L 133- 145 [phone] Potassium 4.5 mmol/L 3.7-5.6 Chloride 104 mmol/L 101-111 Co2 Carbon Dioxide 31 mmol/L 22-32 Anion Gap 4 mmol/L 2-11 Glucose 78 mg/dL 70-100 Blood Urea Nitrogen 15 mg/dL 6-24 Creatinine 0.70 mg/dL 0.51-0.95 BUN/Creatinine Ratio 21.4 High 8-20 Calcium 9.3 mg/dL 8.6-10.3 Total Protein 6.5 g/dL 6.4-8.9 Albumin 4.4 g/dL 3.2-5.2 Globulin 2.1 g/dL 2-4 Albumin/Globulin Ratio 2.1 1-3 Alkaline Phosphatase 78 U/L 34-104 Alt 22 U/L 7-52 Ast 18 U/L 13-39 Egfr Non- 87.5 >60 Egfr 112.6 >60 25 Laboratory test finding 03/08/2014 [facility] GGTP 49 U/L 9-64.0 [phone] Lipase 27 U/L 11.0-82.0 Laboratory test 03/08/2014 [facility] Hepatitis C Nonreactive Nonreactive finding [phone] Antibody Laboratory test 03/08/2014 [facility] Amylase 32 U/L 29-103 finding [phone] Direct Bilirubin 0.20 mg/dL High 0.03-0.18 Total Bilirubin 1.40 mg/dL High 0.2-1.0 Urine Micro Inhouse 03/07/2014 In House Ua WBC - Ua RBC - Ua Casts - Ua Epi - Ua Other - Ua Glucose - Ua Bilirubin - Ua Ketones - Ua Specific [place] 1.015 Ua Blood - Ua PH 5.0 Ua Protein - Ua Urobilinogen - Ua Nitrite - Ua Leukocytes - Culture Urine 03/07/2014 In House Colonies no growth Inhouse Occult Blood,Triple 02/13/2014 In House Misc neg x3 Laboratory test 04/01/2013 [facility] Direct Bilirubin 0.3 mg/dL 0.1 -0.5 finding [phone] Total Bilirubin 1.9 mg/dL High 0.4-1.5 Celiac Panel 03/15/2013 [facility] Immunoglobulin A 237 mg/dL 61 - 356 [phone] Tissue Transglutaminase IgA Ab <1.2 U/mL 26 Celiac Interpretation See Comment 27 Vitamin D, 25 03/15/2013 [facility] 25-Hydroxy Vitamin D2 <4.0 ng/mL Hydroxy [phone] 25-Hydroxy Vitamin D3 34 ng/mL 25-Hydroxy Vitamin D Total 34 ng/mL 28 Comp Metabolic Panel 03/15/2013 [facility] Sodium 139 mmol/L 133- 145 [phone] Potassium 4.2 mmol/L 3.5-5.0 Chloride 99 mmol/L Low 101-111 Co2 Carbon Dioxide 30.0 mmol/L 22-32 Anion Gap 10.0 mmol/L 2-11 Glucose 80 mg/dL 70-100 Blood Urea Nitrogen 13 mg/dL 6-24 Creatinine 0.50 mg/dL 0.50-1.40 BUN/Creatinine Ratio 26.0 High 8-20 Calcium 9.4 mg/dL 8.1-9.9 Total Protein 7.6 g/dL 6.2-8.1 Albumin 4.3 g/dL 3.6-5.4 Globulin 3.3 g/dL 2-4 Albumin/Globulin Ratio 1.3 1-3 Total Bilirubin 2.1 mg/dL High 0.4-1.5 Alkaline Phosphatase 84 U/L 30-110 Alt 49 U/L 14-54 Ast 31 U/L 12-42 Egfr Non- 129.6 >60 Egfr 166.6 >60 29 Laboratory test 03/15/2013 [facility] Erythrocyte Sed 14 mm/Hr 0-30 finding [phone] Rate CBC With Manual 03/15/2013 [facility] White Blood Count 5.7 10^3/uL 4.8-10.8 Diff [phone] Red Blood Count 4.76 10^6/uL 4.0-5.4 Hemoglobin 14.3 g/dL 12.0-16.0 Hematocrit 42 % 35-47 Mean Corpuscular Volume 88 fL 80-97 Mean Corpuscular Hemoglobin 30 pg 27-31 Mean Corpuscular HGB Conc 34 g/dL 31-36 Red Cell Distribution Width 13 % 10.5-15 Platelet Count 234 10^3/uL 150-450 Mean Platelet Volume 10 um3 7.4-10.4 Abs Neutrophils 3.3 10^3/uL 1.5-7.7 Abs Lymphocytes 2.0 10^3/uL 1.0-4.8 Abs Monocytes 0.4 10^3/uL 0-0.8 Abs Eosinophils 0.1 10^3/uL 0-0.6 Abs Basophils 0 10^3/uL 0-0.2 Abs Nucleated RBC 0 10^3/uL Neutrophil % 48 % 38-83 Lymphocytes % 40 % 25-47 Monocytes % 7 % 0-13 Eosinophils % 3 % 0-6 Reactive Lymph % 2 % 0-6 RBC Morphology Normal Normal Laboratory test 03/15/2013 [facility] TSH (Thyroid 2.06 0.34-5.60 finding [phone] Stimulating Horm) miu/mL Cytology 10/08/2012 [facility] Cy RUN DATE: 18 [phone] 10/14/ <SEE NOTE> Human Papilloma 10/08/2012 [facility] Human CERV Virus [phone] Papillomavirus Source Human Papillomavirus High Risk Negative Negative 31 Xray 07/16/2011 [facility] Pelvic Sonogram nlx sm fibroids 32 [address] [place] [address] [phone] Xray 01/07/2011 [facility] X-Ray, Pelvis, 1 Or nl 2 Views X-Ray, Hip, Left, 1 View nl X-Ray, Hip, RT, 1 View nl CBC With Electronic 01/07/2011 [facility] White Blood 6.2 CUMM 4.8- 10.8 Diff [phone] Count Red Cell Count 4.26 CUMM 4.2-5.4 Hemoglobin 12.9 g/dL 12.0-16.0 Hematocrit 38 % 35-47 Mean Corpuscular Volume 90 um3 79-97 Mean Corpuscular Hemoglob 30 pg 27-31 Mean Corpuscular HGB Cone 34 g/dL 32-36 Redcell Distribution WDTH 13 % 10.5-15 Platelet Count 205 CUMM 150-450 Mean Platelet Volume 10.6 um3 High 7.4-10.4 Gran % 56.7 % 38-83 Lymph % 35.0 % 25-47 Mononuclear % 6.7 % 1-9 Eosinophil % 1.3 % 0-6 Basophil % 0.3 % 0-2 Abs Lymphs 2.2 1.0-4.8 Abs Mononuclear 0.4 0-0.8 Absolute Neutrophil Count 3.5 1.5-7.7 Abs Eosinophils 0.1 0-0.6 Abs Basophils 0 0-0.2 Comp Metabolic Panel 01/07/2011 [facility] Sodium 139 mmol/L 135- 145 [phone] Potassium 4.4 mmol/L 3.5-5.0 Chloride 102 mmol/L 101-111 Co2 (Carbon Dioxide) 31.0 mmol/L 22-32 Anion Gap 6.0 mmol/L 2-11 33 Glucose 90 mg/dL 70-100 BUN 11 mg/dL 6-24 Creatinine 0.50 mg/dL 0.50-1.40 One Over Creatinine 2.00 BUN/Creatinine Ratio 22.0 High 8-20 Calcium 9.2 mg/dL 8.1-9.9 Total Protein 7.1 GM/DL 6.2-8.1 Albumin 4.4 GM/DL 3.6-5.4 Globulin 2.7 GM/DL 2-4 Albumin/Globulin Ratio 1.6 1-3 Bilirubin Total 0.9 mg/dL 0.4-1.5 34 Alkaline Phosphatase 65 U/L 30-110 Alt (SGPT) 30 U/L 14-54 Ast (Sgot) 25 U/L 12-42 eGFR Non- 130.6 > 60 eGFR 168.0 > 60 35 Laboratory test 01/07/2011 [facility] Erythrocyte Sed 7 MM/HR 0-30 finding [phone] Rate Arthritis Panel 01/07/2011 [facility] Uric Acid 3.8 mg/dL 2.6-7.2 [phone] Antinuclear AB POSITIVE Abnormal Negative Deneen Pattern SPECKLED Abnormal Antinuclear AB 1:320 Abnormal Reviewed By (SEE NOTE) 36 Rheumatoid Factor < 20.0 IU/mL Less Than 20 Urine Micro Inhouse 01/07/2011 In House Ua WBC - Ua RBC - Ua Casts - Ua Epi - Ua Other - Ua Glucose - Ua Bilirubin - Ua Ketones - Ua Specific [place] 1.005 Ua Blood - Ua PH 5.0 Ua Protein - Ua Urobilinogen - Ua Nitrite - Ua Leukocytes - Laboratory test 01/07/2011 In House Occult Blood - neg x3 finding Stool Basic Metabolic 05/13/2010 [facility] Glucose 101 mg/dL 76- 115 Panel LABORATORY [phone] BUN 14 mg/dL 5-23 Creatinine 0.8 mg/dL 0.5-1.4 Glom Filtration Rate, Estimate >60 mL/min >60 If >60 mL/min >60 37 BUN/Creat 17.5 Sodium 141 mEq/L 136-145 Potassium 4.0 mEq/L 3.5-5.1 Chloride 106 mEq/L 98-107 Carbon Dioxide 32 mEq/L 21-32 Anion Gap 7 mEq/L Low 8-16 Calcium 8.3 mg/dL Low 8.5-10.1 LDL Cholesterol 05/13/2010 [facility] Cholesterol 187 mg/dL 120-200 Profile LABORATORY [phone] Triglycerides 48 mg/dL 0-210 HDL Cholesterol 61 mg/dL 32-96 LDL-Cholesterol 116 mg/dL 62-185 Laboratory 05/13/2010 [facility] C-Reactive 35.2 High 0.0- 4.9 38 test finding LABORATORY Protein,Quant mg/L [phone] CBS 05/13/2010 [facility]. White Blood Count 4.6 K/uL 3.1- 10.7 W/Automated LABORATORY Diff [phone] Red Blood Count 4.43 M/uL 3.90-5.40 Hemoglobin 13.0 gm/dL 11.6-15.8 Hematocrit 39.3 % 36.0-46.1 Mean Cell Volume 88.7 fl 80.9-99.0 Mean Corpuscular HGB 29.3 pg 25.9-32.7 Mean Corpuscular HGB Conc 33.1 g/dL 30.8-34.3 Platelet Count 205 K/uL 155-360 Red Cell Distri Width %CV 12.5 % 11.7-14.4 Mean Platelet Volume 11.8 fL 8.9-12.4 Neut% 42.0 % 40.4-72.8 Lymph % 45.8 % 17.0-46.1 Bradley % 8.5 % 4.3-13.2 Eo% 3.5 % 0.0-6.6 Bas% 0.2 % 0.0-1.1 Neut# 1.9 K/uL 1.0-7.0 Lymph # 2.1 K/uL 0.8-3.4 Bradley # 0.4 K/uL 0.3-0.9 Eos # 0.2 K/uL 0.0-0.5 Baso # 0.0 K/uL 0.0-0.1 Red Cell Distri Width SD 39 fl 3-47 Laboratory test 05/12/2010 [facility]. Streptococcus NEGATIVE Negative 39 finding LABORATORY Pneumoniae Ag,Ur [phone] Legionella Antigen,Urine Negative Negative Laboratory test finding 05/12/2010 [facility]. CK 180 U/L 26 -190 LABORATORY [phone] Troponin-I 0.0 NG/ML 0.0-0.6 40 Blood Culture 05/12/2010 [facility]. Blood Culture Aerobic ng 41 LABORATORY [phone] Blood Culture Anaerobic ng 42 Laboratory test finding 05/12/2010 [facility]. CK 84 U/L 26- 190 LABORATORY [phone] Troponin-I 0.0 NG/ML 0.0-0.6 43 CBC 05/12/2010 [facility]. White Blood Count 10.6 K/uL 3.1- 10.7 LABORATORY [phone] Red Blood Count 4.92 M/uL 3.90-5.40 Hemoglobin 14.7 gm/dL 11.6-15.8 Hematocrit 43.1 % 36.0-46.1 Mean Cell Volume 87.6 fl 80.9-99.0 Mean Corpuscular HGB 29.9 pg 25.9-32.7 Mean Corpuscular HGB Conc 34.1 g/dL 30.8-34.3 Platelet Count 225 K/uL 155-360 Red Cell Distri Width %CV 12.4 % 11.7-14.4 Mean Platelet Volume 11.3 fL 8.9-12.4 Basic Metabolic Panel 05/12/2010 [facility]. Glucose 106 mg/dL 76-115 LABORATORY [phone] BUN 11 mg/dL 5-23 Creatinine 0.6 mg/dL 0.5-1.4 Glom Filtration Rate, Estimate >60 mL/min >60 If >60 mL/min >60 44 BUN/Creat 18.3 Sodium 140 mEq/L 136-145 Potassium 4.4 mEq/L 3.5-5.1 Chloride 104 mEq/L 98-107 Carbon Dioxide 31 mEq/L 21-32 Anion Gap 9 mEq/L 8-16 Calcium 8.9 mg/dL 8.5-10.1 Laboratory test finding 05/12/2010 [facility]. CK 79 U/L 26- 190 45 LABORATORY [phone] Troponin-I 0.0 NG/ML 0.0-0.6 46 CBS W/Automated 05/12/2010 [facility]. White Blood 7.8 K/uL 3.1-10.7 Diff LABORATORY Count [phone] Red Blood Count 4.46 M/uL 3.90-5.40 Hemoglobin 13.7 gm/dL 11.6-15.8 Hematocrit 39.5 % 36.0-46.1 Mean Cell Volume 88.6 fl 80.9-99.0 Mean Corpuscular HGB 30.7 pg 25.9-32.7 Mean Corpuscular HGB Conc 34.7 g/dL High 30.8-34.3 Platelet Count 286 K/uL 155-360 Red Cell Distri Width %CV 12.3 % 11.7-14.4 Mean Platelet Volume 11.7 fL 8.9-12.4 Neut% 49.2 % 40.4-72.8 Lymph % 41.3 % 17.0-46.1 Bradley % 7.9 % 4.3-13.2 Eo% 1.3 % 0.0-6.6 Bas% 0.3 % 0.0-1.1 Neut# 3.8 K/uL 1.0-7.0 Lymph # 3.2 K/uL 0.8-3.4 Bradley # 0.6 K/uL 0.3-0.9 Eos # 0.1 K/uL 0.0-0.5 Baso # 0.0 K/uL 0.0-0.1 Red Cell Distri Width SD 39 fl 3-47 Laboratory test 05/12/2010 [facility] D-Dimer, < 0.22 47 finding LABORATORY Quantitative ug/mL [phone] Magnesium 2.0 mg/dL 1.7-2.3 48 Protime 05/12/2010 [facility] Protime 13.2 seconds 11.7- 15.1 LABORATORY [phone] Inr 1.0 0.8-1.2 49 Laboratory test 05/12/2010 [facility] Act Partial 30.3 23.4 -37.4 50 finding LABORATORY Thrombo Time seconds [phone] Xray 01/21/2010 [facility] X-Ray, Chest, 2 wnl Views Laboratory test 01/21/2010 [facility] Erythrocyte Sed 5 MM/HR 0-15 51 finding [phone] Rate Basic Metabolic 01/21/2010 [facility] Sodium 138 mmol/L 135-145 Panel [phone] Potassium 4.3 mmol/L 3.5-5.0 Chloride 100 mmol/L Low 101-111 Co2 (Carbon Dioxide) 30.0 mmol/L 22-32 Anion Gap 8.0 mmol/L 2-11 52 Glucose 87 mg/dL 70-100 53 BUN 10 mg/dL 6-24 Creatinine 0.60 mg/dL 0.50-1.40 One Over Creatinine 1.60 BUN/Creatinine Ratio 16.7 8-20 Calcium 10.0 mg/dL High 8.1-9.9 54 eGFR Non- 112.9 > 60 eGFR 136.6 > 60 55 Liver Function Panel 01/21/2010 [facility] Total Protein 6.7 GM/DL 6.2-8.3 [phone] Albumin 4.2 GM/DL 3.6-5.4 Globulin 2.5 GM/DL 2-4 Albumin/Globulin Ratio 1.7 1-3 Bilirubin Total 2.3 mg/dL High 0.4-1.5 56 Bilirubin Direct 0.3 mg/dL 0.1-0.5 Indirect Bilirubin 2.0 mg/dL High 0.1-0.75 Alkaline Phosphatase 64 U/L 30-110 Alt (SGPT) 39 U/L 14-54 Ast (Sgot) 26 U/L 12-42 CBC With Electronic 01/21/2010 [facility] White Blood 6.3 CUMM 4.8- 10.8 Diff [phone] Count Red Cell Count 4.48 CUMM 4.2-5.4 Hemoglobin 13.9 g/dL 12.0-16.0 Hematocrit 40 % 35-47 Mean Corpuscular Volume 90 um3 79-97 Mean Corpuscular Hemoglob 31 pg 27-31 Mean Corpuscular HGB Cone 34 g/dL 32-36 Redcell Distribution WDTH 12 % 10.5-15 Platelet Count 273 CUMM 150-450 Mean Platelet Volume 9.4 um3 7.4-10.4 Gran % 64.4 % 38-83 Lymph % 26.8 % 25-47 Mononuclear % 7.2 % 1-9 Eosinophil % 1.2 % 0-6 Basophil % 0.4 % 0-2 Abs Lymphs 1.7 1.0-4.8 Abs Mononuclear 0.5 0-0.8 Absolute Neutrophil Count 4.1 1.5-7.7 Abs Eosinophils 0.1 0-0.6 Abs Basophils 0 0-0.2 Laboratory test 03/29/2009 In House Occult Blood - neg x3 finding Stool Laboratory test 07/04/2008 [facility] Surgical Pathology abhinav ker x 57 finding [phone] 2 Lipid Profile 06/16/2008 [facility] Triglyceride 75 mg/dL 40-200 58 (Trig/Chol/HDL) [phone] Cholesterol 224 mg/dL High Less Than 200 59 High Density Lipoprotein 63 mg/dL High 40-60 60 Cholesterol/HDL Ratio 3.56 AVERAGE 1-4.44 Low Density Lipoprotein 146 mg/dL High Less Than 100 61 Laboratory test 04/15/2008 In House Glucose Quantitative 81 finding Xray 04/15/2008 [facility] X-Ray, Chest, 2 wnl Views Retic Count 07/09/2007 [facility] Corrected Retic 1.0 % 0.5-1.5 [phone] Hematocrit For Retic Coun 38 % 35-47 RBC Retic Count 4.38 CUMM Low 4.6-6.2 Reticulocyte Count 1.17 % 0.5-1.5 Immature Retic Fraction 0.26 Mean Retic Volume 103.4 Retic Index 0.7 Iron & Iron Binding 07/09/2007 [facility] Iron Total 161 g/dL 28- 170 Capacity [phone] Unsaturated Iron Binding 235 g/dL Total Iron Binding Capacity 396 g/dL 250-450 % Iron Saturation 41 % 15-55 CBC With Electronic 07/09/2007 [facility] White Blood 5.5 CUMM 4.8- 10.8 Diff [phone] Count Abs Basophils 0 0-0.2 Abs Eosinophils 0.1 0-0.6 Absolute Neutrophil Count 3.6 1.5-7.7 Abs Lymphs 1.4 1.0-4.8 Abs Mononuclear 0.4 0-0.8 Basophil % 0.4 % 0-2 Hematocrit 38 % 35-47 62 Hemoglobin 13.2 g/dL 12.0-16.0 Eosinophil % 1.4 % 0-6 Gran % 65.4 % 38-83 Lymph % 24.9 % 20-45 Mean Corpuscular HGB Cone 34 g/dL 32-36 Mean Corpuscular Hemoglob 30 pg 27-31 Mean Corpuscular Volume 88 um3 79-97 Mean Platelet Volume 10.4 um3 7.4-10.4 Mononuclear % 7.9 % 1-9 Platelet Count 288 CUMM 150-450 Red Cell Count 4.38 CUMM 4.2-5.4 Redcell Distribution WDTH 13 % 10.5-15 Laboratory test 07/09/2007 [facility] Ferritin < 10 NG/ML Low 11.0- 307 finding [phone] Laboratory test 05/07/2007 In House Hemoglobin 13.2 finding Xray 04/07/2007 [facility] X-Ray, Chest, [address] [place] [address] [phone] X-Ray, Pelvis, 1 Or 2 Views nl X-Ray, Hip, RT, 1 View nl X-Ray, Abdomen,Single Anteroposterior View nl Retic Count 02/16/2007 [facility] Corrected Retic 1.2 % 0.5-1.5 [phone] Hematocrit For Retic Coun 34 % Low 35-47 RBC Retic Count 4.30 CUMM Low 4.6-6.2 Reticulocyte Count 1.65 % High 0.5-1.5 Immature Retic Fraction 0.33 Mean Retic Volume 98.5 Retic Index 0.8 CBC With Electronic 02/16/2007 [facility] White Blood 7.2 CUMM 4.8- 10.8 Diff [phone] Count Abs Basophils 0 0-0.2 Abs Eosinophils 0.1 0-0.6 Absolute Neutrophil Count 4.8 1.5-7.7 Abs Lymphs 1.7 1.0-4.8 Abs Mononuclear 0.6 0-0.8 Basophil % 0.4 % 0-2 Hematocrit 34 % Low 35-47 Hemoglobin 11.4 g/dL Low 12.0-16.0 Eosinophil % 1.5 % 0-6 Gran % 66.1 % 38-83 Lymph % 23.4 % 20-45 Mean Corpuscular HGB Cone 33 g/dL 32-36 Mean Corpuscular Hemoglob 27 pg 27-31 Mean Corpuscular Volume 80 um3 79-97 Mean Platelet Volume 9.6 um3 7.4-10.4 Mononuclear % 8.6 % 1-9 Platelet Count 309 CUMM 150-450 Red Cell Count 4.30 CUMM 4.2-5.4 Redcell Distribution WDTH 16 % High 10.5-15 Laboratory test finding 02/15/2007 [facility] Cytology wnl [phone] Occult Blood,Triple 02/11/2007 In House Misc NEG X3 Ua Inhouse 02/02/2007 In House Ua Glucose - Ua Bilirubin - Ua Ketones - Ua Specific [place] 1.030 Ua Blood - Ua PH 6.0 Ua Protein - Ua Urobilinogen - Ua Nitrite - Ua Leukocytes - Laboratory test 02/02/2007 In House Urine Microscopic - finding Inhouse Iron & Iron 01/13/2007 [facility] Iron Total 12 g/dL Low 28-170 Binding Capacity [phone] Unsaturated Iron Binding 469 g/dL Total Iron Binding Capacity 481 g/dL High 250-450 % Iron Saturation 2 % Low 15-55 Laboratory test 01/13/2007 [facility] Ferritin < 10 NG/ML Low 11.0- 307 finding [phone] Retic Count 01/13/2007 [facility] Corrected Retic 0.7 % 0.5-1.5 [phone] Hematocrit For Retic Coun 32 % Low 35-47 RBC Retic Count 3.98 CUMM Low 4.6-6.2 Reticulocyte Count 0.93 % 0.5-1.5 Immature Retic Fraction 0.22 Mean Retic Volume 106.9 Retic Index 0.5 Basic Metabolic Panel 01/13/2007 [facility] One Over Creatinine 1.42 [phone] Anion Gap 8.0 mmol/L 2-11 64 BUN 14 mg/dL 6-24 Calcium 9.3 mg/dL 8.7-10.2 Chloride 101 mmol/L 101-111 Co2 (Carbon Dioxide) 29.0 mmol/L 22-32 Glucose 95 mg/dL 70-105 Potassium 4.4 mmol/L 3.5-5.0 Sodium 138 mmol/L 135-145 BUN/Creatinine Ratio 20.0 8-20 Creatinine 0.7 mg/dL 0.5-1.4 Laboratory test 01/13/2007 [facility] Erythrocyte Sed 9 MM/HR 0-15 finding [phone] Rate CBC With 01/13/2007 [facility] White Blood Count 6.0 CUMM 4.8-10.8 Electronic Diff [phone] Abs Basophils 0 0-0.2 Abs Eosinophils 0.1 0-0.6 Absolute Neutrophil Count 3.3 1.5-7.7 Abs Lymphs 2.1 1.0-4.8 Abs Mononuclear 0.5 0-0.8 Basophil % 0.5 % 0-2 Hematocrit 32 % Low 35-47 Hemoglobin 10.6 g/dL Low 12.0-16.0 Eosinophil % 1.3 % 0-6 Gran % 54.9 % 38-83 Lymph % 34.5 % 20-45 Mean Corpuscular HGB Cone 34 g/dL 32-36 Mean Corpuscular Hemoglob 27 pg 27-31 Mean Corpuscular Volume 80 um3 79-97 Mean Platelet Volume 9.8 um3 7.4-10.4 Mononuclear % 8.8 % 1-9 Platelet Count 319 CUMM 150-450 Red Cell Count 3.98 CUMM Low 4.2-5.4 Redcell Distribution WDTH 13 % 10.5-15 Laboratory test 01/09/2007 In House Urine Microscopic OCC EPI,OCC WBC finding Inhouse Ua Inhouse 01/09/2007 In House Ua Glucose - Ua Bilirubin - Ua Ketones - Ua Specific [place] 1.030 Ua Blood - Ua PH 5.0 Ua Protein - Ua Urobilinogen - Ua Nitrite - Ua Leukocytes - Laboratory test finding 06/15/2006 In House Hemoglobin 13.7 CBC With Electronic Diff 01/12/2006 [facility] White Blood Count 5.6 RBC Red Blood Count 4.54 Hemoglobin 14.2 Hematocrit 40.1 MCV (Corpuscular Volume) 88.2 MCH (Corpuscular Hemoglobin) 31.2 MCHC (Corpuscular Hemog Conc) 35.4 RDW 13.1 Platelet Count 275 MPV 0.6 Neutrophils 3.4 Lymphocytes 1.7 Monocytes 0.3 Eosinophils 0.1 Basophils 0.0 Low 0.1-0.2 Laboratory test finding 01/12/2006 [facility] TSH Thyroid Stimulating 2.19 Horm Lipid Panel 01/12/2006 [facility] Cholesterol Total 199 High Density Lipoprotein 54 LDL Low Density Lipoprotein 130 Triglycerides 73 CMP Panel 01/12/2006 [facility] Albumin 4.0 Alt - SGPT 41 Calcium 8.9 Carbon Dioxide 31 Chloride 104 Creatinine 0.7 Glucose Serum 92 Alkaline Phosphatase 78 Potassium 4.1 Protien Total 7.1 Sodium 137 Ast - Sgot 20 BUN - Urea Nitrogen 12 Ua Inhouse 12/30/2005 In House Ua Glucose NEG Ua Bilirubin NEG Ua Ketones NEG Ua Specific [place] 1.020 Ua Blood NEG Ua PH 5.0 Ua Protein NEG Ua Urobilinogen NEG Ua Nitrite NEG Ua Leukocytes NEG Laboratory test finding 12/30/2005 [facility] Pap Smear normal [phone] Ua Inhouse 12/06/2004 In House Ua Glucose NEG Ua Bilirubin NEG Ua Ketones NEG Ua Specific [place] 1.015 Ua Blood NEG Ua PH 5.0 Ua Protein NEG Ua Urobilinogen NEG Ua Nitrite NEG Ua Leukocytes NEG Laboratory test 12/06/2004 In House Urine Microscopic NEG finding Inhouse Xray 06/26/2004 [facility] X-ray, Pelvis, 1 Or normal 65 2 Views Comp Metabolic 05/28/2004 [facility] Anion Gap 4.0 mmol/L 2-11 66 Panel [phone] Albumin/Globulin Ratio 1.8 1-3 Albumin 4.2 GM/DL 3.6-5.4 Alkaline Phosphatase 63 U/L 30-110 Alt (SGPT) 26 U/L 14-54 Ast (Sgot) 22 U/L 12-42 BUN 11 mg/dL 6-24 Calcium 9.7 mg/dL 8.7-10.2 Chloride 103 mmol/L 101-111 Co2 (Carbon Dioxide) 32.0 mmol/L 22-32 Creatinine 0.6 mg/dL 0.5-1.4 Globulin 2.4 GM/DL 2-4 Glucose 110 mg/dL High 70-105 Potassium 4.7 mmol/L 3.5-5.0 Sodium 139 mmol/L 135-145 Bilirubin Total 1.5 mg/dL 0.4-1.5 Total Protein 6.6 GM/DL 6.2-8.1 BUN/Creatinine Ratio 18.3 8-20 Laboratory test 05/28/2004 [facility] Erythrocyte Sed 1 MM/HR 0-15 finding [phone] Rate CBC With 05/28/2004 [facility] White Blood Count 6.4 CUMM 4.8-10.8 Electronic Diff [phone] Abs Basophils 0 0-0.2 Abs Eosinophils 0.1 0-0.6 Abs Grans 3.9 1.5-7.7 Abs Lymphs 1.9 1.0-4.8 Abs Mononuclear 0.6 0-0.8 Basophil % 0.2 % 0-2 Hematocrit 39 % 35-47 Hemoglobin 13.2 g/dL 12.0-16.0 Eosinophil % 1.6 % 0-6 Gran % 60.0 % 38-83 Lymph % 29.5 % 20-45 Mean Corpuscular HGB Cone 34 g/dL 32-36 Mean Corpuscular Hemoglob 30 pg 27-31 Mean Corpuscular Volume 88 um3 79-97 Mean Platelet Volume 10.4 um3 7.4-10.4 Mononuclear % 8.7 % 1-9 Platelet Count 272 CUMM 150-450 Red Cell Count 4.41 CUMM 4.2-5.4 Redcell Distribution WDTH 13 % 10.5-15 1 Because ethnic data is not always [...] Additional information may be found at www.kdoqi.org. 5 SENT BY CC. CP ; BLOODWORK NEEDED 6 Tests: CRP Instructions: 7 0.0 - 0.045 ng/mL: Normal 0.046 - 0.5 ng/mL: Suggestive 0.6 - 1.5 ng/mL: Consistent 8 <=0.49 ug/mL - Low likelihood of DIC, DVT or Pulmonary Embolism >0.49 ug/mL - Additional testing should be done to rule out DIC, DVT, or Pulmonary embolism as clinically indicated. ([facility] has established a 97.89% negative predictive value for thrombotic disease when a cutoff value of 0.5 ug/mL is used.) 9 SEE RESULT BELOW Name: ZIGGY BARRIOS : [address]: Lucero Thomas MD Acct: [id number] Unit: [id number] AGE: 57 Location: [facility] Re03/09/18 SEX: F Status: REG REF SPEC: [id number] DEVON: 03/09/18 [facility] DR: Lucero Thomas MD REQ: [id number] RECD: 03/09/187963 STATUS: CHERIE MURRAY DR: Eddie Kaur MD _ ORDERED: TP IMAGE ANALYS, HPV/Thin Prep COMMENTS: [id number] Negative for Intraepithelial lesion or Malignancy A. Ectocervical/Endocervical Specimen Adequacy: Satisfactory of evaluation Transformation zone component identified Patient Information: HPV: High risk HPV RNA testing regardless of pap results. Actual Specimen Date: 03/09/18 LMP If Unknown: 2006 Date of Last Specimen: 01/23/17 Post Menopausal?: Y Date Time Test Result Flag (u) Normal Range 03/09/18 1331 @ HPV RNA Negative Negative @ @ The high-risk HPV types detected by the assay include: 16, @ 18, 31, 33, 35, 39, 45, 51, 52, 56, 58, 59, 66, and 68. Signed by and Reported on: GRACIE Chandra (ASCP) 1255 This Pap test was evaluated with the assistance of the Ke[employer]hs Test Imaging System. Due to cytologic findings at the automotive fuel injection servicer microscope, comprehensive manual rescreening by a Oil Expert may be required. The Pap Smear is a screening test designed to aid in the detection of premalignant and malignant conditions of the uterine cervix. It is not a diagnostic procedure and should not be used as the sole means of detecting cervical cancer. Both false- positive and false- negative reports do occur. Depending on your risk status, a Pap smear should be obtained and evaluated every 1-3 years. END OF REPORT DEPARTMENT OF PATHOLOGY, [address] [place] [address] Grabiel Scott M.D. Director [facility] # [id number] 10 Because ethnic data is not always readily [...] 15-29 5 Kidney failure <15 (or dialysis) 11 Therapeutic target for the treatment of diabetes mellitus patients is <7% HBA1C, and in selective patients <6.0%. Please refer to [place] [employer] diabetic care guidelines for further information. 12 Desirable: <150 Borderline High: 150-199 High: 200-499 Very High: >500 13 Desirable: <200 Borderline High: 200-239 High: >239 14 Low: <40 Desirable: 40-60 High: >60 15 Desirable: <100 Near Optimal: 100-129 Borderline High: 130-159 High: 160-189 Very High: >189 16 REFERENCE VALUE <1.0 (Negative) 17 REFERENCE VALUE <1.0 (Negative) Test Performed by: [address] [address] 18 Normal Range 180 to 914 Indeterminate Range 145 to 180 Deficient Range <145 19 void, clear, yellow 20 Desirable <150 Borderline high 150-199 High 200-499 Very High >500 21 Desirable <200 Borderline high 200-239 High >239 22 Low <40 Desirable: 40-60 High: >60 23 Desirable: <100 mg/dL Near Optimal: 100-129 mg/dL Borderline High: 130-159 mg/dL High: 160-189 mg/dL Very High: >189 mg/dL 24 Because ethnic data is not always readily [...] 15-29 5 Kidney failure <15 (or dialysis) 25 Because ethnic data is not always readily [...] 15-29 5 Kidney failure <15 (or dialysis) 26 -- REFERENCE VALUE -- <4.0 (Negative) Test Performed by: [address] [address] Fill Plant Operator: Tushar Addison III, M.D. 27 Negative serology. Celiac disease unlikely. However, approximately 10% of patients with celiac disease are seronegative. Also, patients who are already adhering to a gluten-free diet may be seronegative. If celiac disease is highly clinically suspected, consider HLA-DQ typing. Test Performed by: [address], [place] [address] Fill Plant Operator: Tushar Addison III, M.D. 28 -- REFERENCE VALUE -- 25-HYDROXY D TOTAL (D2+D3) Optimum levels in the normal population are 25-80 Test Performed by: [address] [address] Fill Plant Operator: Tushar Addison III, M.D. 29 Because ethnic data is not always readily [...] 15-29 5 Kidney failure <15 (or dialysis) 30 RUN DATE: 10/14/12 [facility] LAB LIVE PAGE 1 RUN TIME: [address] [place] [address] Specimen Inquiry Name: ZIGGY BARRIOS : [address]: Lucero Thomas MD Acct: [id number] Unit: [id number] AGE: 51 Location: [facility] Re10/08/12 SEX: F Status: REG REF SPEC: [id number] DEVON: 10/08/12-1110 [facility] DR: William STROUD, Lucero REQ: [id number] RECD: 10/11/12 STATUS: SOUT _ ORDERED: IMAGE ANALYSIS, HPV / Thin Prep HiRisk Human Papilloma Virus test results received with preparation and diagnosis completed by [facility], [place], [place]. Results: NEGATIVE High Risk (for types 16, 18, 31, 33, 35, 39, 45, 51, 52, 56, 58, 59, 68) Droplet Technology Hybrid Capture Specimen Transport Media or Canpages ThinPrep PapTest PreservCyt Solution are the collection systems approved for use with this method by the U.S. Food and Drug Administration. Performance characteristics for [employer] (Gusto) collection device have been determined by Laboratory Medicine and Pathology , [facility], [place], [place]. It has not been cleared or approved by the U.S. Food and Drug Administration. Test Performed by: [facility] Dpt of lab Med and Pathology [address] [place], [place] [id number] Fill Plant Operator: Tushar Addison III, M.D. Original hard copy report from [facility] is available upon request by calling Pathology at [phone]. Addendum Signed GRACIE Chandra (ASCP) 10/14 1023 Negative for Intraepithelial lesion or Malignancy COMMENTS: Specimen sent to [facility] in [place], [place] on 10/11/12. Results will be reported separately in an Addendum. A. Ectocervical/Endocervical Specimen Adequacy: Satisfactory of evaluation Transformation zone component identified Patient Information: HPV: High risk HPV DNA testing regardless of pap results. CONTINUED ON NEXT PAGE * ML=Testing performed at Main Lab DEPARTMENT OF PATHOLOGY, [facility] [employer] [place], [place] [address] Grabiel Scott M.D. Director [facility] Permit #[id number] RUN DATE: 10/14/12 [facility] LAB LIVE PAGE 2 RUN TIME: 1024 [facility] [employer] [facility], [place], [place] [address] Specimen Inquiry Patient: ZIGGY BARRIOS [id number] (Continued) CYTOLOGY PATIENT INFORMATION (Continued) Actual Specimen Date: 10/08/12 Last Menstrual Date: 10/06/07 Date of Last Specimen: 08/11/11 ?: N Post Menopausal?: N Hysterectomy?: N Signed (signature on file) GRACIE Pascal (ASCP) 10/11/12 1221 This Pap test was evaluated with the assistance of the PipedrivePrep Test Imaging System. Due to cytologic findings at the automotive fuel injection servicer microscope, comprehensive manual rescreening by a Oil Expert may be required. The Pap Smear is a screening test designed to aid in the detection of premalignant and malignant conditions of the uterine cervix. It is not a diagnostic procedure and should not be used as the sole means of detecting cervical cancer. Both false- positive and false- negative reports do occur. Depending on your risk status, a Pap smear shoudl be obtained and evaluated every 1-3 years. END OF REPORT * ML=Testing performed at Main Lab DEPARTMENT OF PATHOLOGY, [address] [place] [address] Grabiel Scott M.D. Director [facility] Permit #[id number] 31 For types 16, 18, 31, 33, 35, 39, 45, 51, 52, 56, 58, 59 and 68. Test Performed by: [place] [address] Fill Plant Operator: Tushar Addison III, M.D. 32 complex cyst on left disappeared from Sept only a new functional cyst at this time spoke with Dr Renee 33 Anion gap measurement may be of limited value in the presence of any alkalosis, especially in a combined acid base disorder. . 34 A metabolite of Naproxen, O-desmethylnaproxen, has been shown to interfere with the [place] method for measuring total bilirubin. Samples from patients who have taken Naproxen have shown spurious elevation in total bilirubin levels. 35 Because ethnic data is not always readily [...] 15-29 5 Kidney failure <15 (or dialysis) 36 REVIEWED BY GRABIEL SCOTT MD 37 Note: Persistent reduction for 3 months or more in an eGFR <60 mL/min/1.73 m2 defines CKD. Patients with eGFR values >/=60 mL/min/1.73 m2 may also have CKD if evidence of persistent proteinuria is present. The original MDRD equation for estimated GFR is not valid for patients less than 18 years of age. Additional information may be found at www.kdoqi.org. 38 Performed at: - [facility] [address] [id number] Bmw Sales Consultant: Sergio Lacey MD, Phone: [phone] 39 Performed at: - [facility] [address] [id number] [employer] Sales Consultant: Onofre Oseguera MD, Phone: [phone] 40 0 - 0.6 NG/ML: NO EVIDENCE OF MYOCARDIAL INJURY 0.7 - 1.5 NG/ML: MILD ELEVATION, SUGGESTING POSSIBLE MYOCARDIAL INJURY > 1.5 NG/ML: CONSISTENT WITH MYOCARDIAL INJURY 41 NO GROWTH: FINAL REPORT 42 NO GROWTH: FINAL REPORT 43 0 - 0.6 NG/ML: NO EVIDENCE OF MYOCARDIAL INJURY 0.7 - 1.5 NG/ML: MILD ELEVATION, SUGGESTING POSSIBLE MYOCARDIAL INJURY > 1.5 NG/ML: CONSISTENT WITH MYOCARDIAL INJURY 44 Note: Persistent reduction for 3 months or more in an eGFR <60 mL/min/1.73 m2 defines CKD. Patients with eGFR values >/=60 mL/min/1.73 m2 may also have CKD if evidence of persistent proteinuria is present. The original MDRD equation for estimated GFR is not valid for patients less than 18 years of age. Additional information may be found at www.kdoqi.org. 45 MG ADDED 7/[address] TOMI RIVERA PT PTT ADDED 7/[address] TOMI RIVERA SLI HEMOLYZED 46 0 - 0.6 NG/ML: NO EVIDENCE OF MYOCARDIAL INJURY 0.7 - 1.5 NG/ML: MILD ELEVATION, SUGGESTING POSSIBLE MYOCARDIAL INJURY > 1.5 NG/ML: CONSISTENT WITH MYOCARDIAL INJURY 47 Note: [facility] has established a 97.89% negative predictive value for thrombotic disease when a cutoff value of 0.5 ug/mL is used. Additional performance parameters for local prevalence of 94.4% as follows: PPV: 9.92%, Sensitivity: 76.47%, Specificity: 61.12% 48 MG ADDED 7/[address] TOMI RIVERA PT PTT ADDED 7/[address] TOMI RIVERA SLI HEMOLYZED 49 THERAPEUTIC INR RANGE: 2.0 - 3.0 DVT, Pulmonary embolus, prophylaxis against venous thrombosis or systemic embolization in high risk patients. 2.5 - 3.5 Mechanical heart valves 50 QUERY: Anticoagulant Therapy? QUERY: Date of Last Dose: QUERY: Time of Last Dose: 51 elev t bili has been seen frequentl in the past wk 52 Anion gap measurement may be of limited value in the presence of any alkalosis, especially in a combined acid base disorder. . 53 Note change in reference range as of 06/29/08. The change was based on recommendations from the [place] [employer]. 54 Please note change in reference range effective 08 . 55 Because ethnic data is not always readily [...] 15-29 5 Kidney failure <15 (or dialysis) 56 A metabolite of Naproxen, O-desmethylnaproxen, has been shown to interfere with the [place]rass[place] method for measuring total bilirubin. Samples from patients who have taken Naproxen have shown spurious elevation in total bilirubin levels. 57 ---- RUN DATE: 07/07/08 [facility] NMI LIVE PAGE 1 RUN TIME: 1118 Specimen Inquiry RUN USER: INTERFACE -- Name: KORYZIGGY Accmarco antonio#: [id number] Status: REG REF Re07/04/08 Age/Sex: 47/F Unit#: [id number] Location: [facility] : 60 -- Specimen: [id number] SOUT Spec Date: 07/04/[address]: Onofre thorne MD Spec Type: SURGICAL P Received: 07/06/08 Copies to: SPECIMEN 1) SHAVE BIOPSY SKIN LEFT LOWER LEG 2) SKIN UPPER NECK/BACK HISTORY PRE-OP DIAGNOSIS: Neoplasm, uncertain; possible seborrheic keratosis CLINICAL INFORMATION: 1) Present for one month 2) dark, itchy changes GROSS DESCRIPTION 1) The specimen is received in fixative labelled Ziggy Barrios, Left Lower Leg Skin, and consists of an apparent superficial shave biopsy of moss-fernandez skin, about 4.0 x 4.0 x 1.0 mm. Bisected and mounted entirely labelled #1. 2) The specimen is received in fixative labelled Ziggy Nicky Barrios, Upper Neck Back Skin, and consists of a superficial shave biopsy of skin, about 10.0 mm. in length with a raised, discrete, wart-like, 6.0 mm. lesion on the surface. Bisected and mounted entirely labelled #2. DIAGNOSIS 1) Seborrheic keratosis, shave biopsy, left lower leg . 2) Seborrheic keratosis, shave biopsy, upper neck/back . Signed Electronically by: CARISSA MILLER MD 07/07/08 1118 -- -- DEPARTMENT OF PATHOLOGY, [address] [place] [address] [facility] Permit #[id number] Grabiel Scott M.D. Director of [employer] -- 58 FASTING 59 CHOLESTEROL INTERPRETATION: Desirable: Less than 200 MG/DL Borderline-High Risk: 200-239 MG/DL High-Risk: 240 MG/DL and over 60 HDL INTERPRETATION: Undesirable: High Risk: Less than 40 MG/DL Desirable: Low Risk: Greater than 60 MG/DL 61 LDL INTERPRETATION: Low Risk Optimal Level: LDL Less than 100 MG/DL Near or Above Optimal: LDL 100-129 MG/DL Borderline High Risk: LDL 130-159 MG/DL High Risk: LDL 160-189 MG/DL Very High Risk: LDL Greater than 189 MG/DL 62 Verify Retic 63 ---- RUN DATE: 02/09/07 [facility] NMI LIVE PAGE 1 RUN TIME: 1412 Specimen Inquiry RUN USER: INTERFACE [id number] ZIGGY BARRIOS 46/F <REG REF 02/02> ([id number]) Onofre Funes MD -- Specimen: [id number] SOUT Spec Date: 02/02/[address] [facility] [address]: Onofre thorne MD Spec Type: CYTOLOGY Received: 02/04/07-1210 Copies to: SOURCE ECTOCERVICAL/ENDOCERVICAL Thin Prep with Reflex HPV Test PATIENT INFORMATION ACTUAL COLLECTION DATE: 02/02/07 ? NO POST MENOPAUSAL? No HYSTERECTOMY? No PREVIOUS ABNORMAL PAP SMEARS No LAST MENSTRUAL PERIOD: 01/27/07 ADEQUACY OF SPECIMEN Satisfactory for evaluation * Transformation zone component identified * DIAGNOSIS NEGATIVE FOR INTRAEPITHELIAL LESION OR MALIGNANCY * This Pap test was evaluated with the assistance of the PipedrivePrep Pap Test Imaging System. The Pap Smear is a screening test designed to aid in the detection of premalign ant and malignant conditions of the uterine cervix. It is not a diagnostic procedure a nd should not be used as the sole means of detecting cervical cancer. Both false- positive and false-negative reports do occur. Depending on your risk status, a Pap smear adriana uld be obtained and evaluated every one to three years. Final Interpretation electronically signed by: Tiki YAN(ASC) 02/09/07 -- -- DEPARTMENT OF PATHOLOGY, [address] [place] [address] [facility] Permit #[id number] Onofre Cutler II, M.D. Director Grabiel Scott M.D. Assistant Lise cardenasctor -- 64 Anion gap measurement may be of limited value in the presence of any alkalosis, especially in a combined acid base disorder. . 65 pa view single nl si joints, hips and pelvis 66 Anion gap measurement may be of limited value in the presence of any alkalosis, especially in a combined acid base disorder. . Procedures Date Code Description Status 10/05/2018 69259 X-Ray Shoulder Two Or More Views Completed 03/09/2018 01234327 Mammogram Completed 10/29/2017 88160 ECG Monitor/Review & Interpretation, W/Visual Completed Superimpos Scan 10/29/2017 13920 ECG Monitor/Recording W/Scanning Completed 10/22/2017 95463 Electrocardiogram Complete Completed 07/10/2016 [id number] Colonoscopy Completed 01/07/2011 99202 X-Ray Hip One View Completed 01/07/2011 74606 X-Ray Hip One View Completed 01/07/2011 38110 X-Ray Hip One View Completed 01/07/2011 36287 X-Ray Pelvis, Ap Only Completed 01/21/2010 85467 Oximetry, Multiple Determinations (Eg, During Exercise) Completed 01/21/2010 45818 X-Ray Chest Two Views Completed 08/14/2008 0 Payment Completed 07/04/2008 80461 Biopsy Skin Lesion Each Addtl Completed 07/04/2008 79987 Biopsy Skin Lesion Single Completed 04/15/2008 50330 X-Ray Chest Two Views Completed 04/15/2008 83312 Electrocardiogram Complete Completed 11/19/2006 63781 Puncture Aspiration Of Cyst Of Breast Completed 10/14/2006 0 Payment Completed 12/30/2005 28298 Electrocardiogram Complete Completed 02/04/2005 33116 X-Ray, Thoracic Spine, Ap & Lat Completed 02/04/2005 22077 X-Ray Chest Two Views Completed 01/28/2005 33854 X-Ray, Thoracic Spine, Ap & Lat Completed 01/28/2005 16189 X-Ray Chest Two Views Completed 09/19/2004 07778 Biopsy Endometrial/Endocervical Completed 07/24/2004 78586 Anoscopy Diagnostic Completed 07/24/2004 10675 Sigmoidoscopy Diagnostic Completed 06/26/2004 96029 X-Ray Pelvis, Ap Only Completed 06/26/2004 82022 X-Ray Pelvis, Ap Only Completed 08/28/2003 03762 Biopsy Endometrial/Endocervical Completed Encounters Type Date Location Provider Dx Diagnosis Office Visit 10/05/2018 Main Office Paola Blake J01.90 Acute sinusitis, 11:20a P.A. unspecified R05 Cough M25.512 Pain in left shoulder R10.13 Epigastric pain Office Visit 08/26/2018 3:40p Main Office Paola Blake, M25.512 Pain in left P.A. shoulder I10 Essential (primary) hypertension R79.9 Abnormal finding of blood chemistry, unspecified R10.13 Epigastric pain Office Visit 11/10/2017 4:00p Main Office Paola Blake, I10 Essential ( primary) P.A. hypertension H81.12 Benign paroxysmal vertigo, left ear R20.2 Paresthesia of skin Office Visit 10/22/2017 3:40p Main Office Paola Blake R68.2 Dry mouth, P.A. unspecified R03.0 Elevated blood-pressure reading, w/o diagnosis of htn R42 Dizziness and giddiness I49.9 Cardiac arrhythmia, unspecified Office Visit 09/28/2017 3:40p Main Office Paola Blake R68.2 Dry mouth, P.A. unspecified R03.0 Elevated blood-pressure reading, w/o diagnosis of htn Office Visit 09/05/2017 10:30a Main Office Alla Burks, R68.2 Dry mouth, PA unspecified Z13.220 Encounter for screening for lipoid disorders K12.30 Oral mucositis (ulcerative), unspecified Office Visit 08/24/2017 5:00p Main Office Eddie Kaur, R42 Dizziness and M.D. giddiness R68.2 Dry mouth, unspecified Office Visit 10/10/2016 4:00p Main Office Onofre Sesay, M54.5 Low back pain M.D. Z00.01 Encounter for general adult medical exam w abnormal findings Office Visit 03/27/2016 2:45p Main Office Onofre Ballard R03.0 Elevated Francie Sesay blood-pressure reading, w/o diagnosis of htn Z00.01 Encounter for general adult medical exam w abnormal findings Office Visit 08/25/2015 10:30a Main Office Juvencio Nesbitt, J01.00 Acute maxillary D.O. sinusitis, unspecified Office Visit 02/01/2015 4:00p Main Office Onofre Ballard 785.6 Lymph Nodes Francie Sesay Enlargement 564.1 Irritable Bowel Syndrome V70.0 Examination General Medical Routine AT Health Care Facility V77.91 Screening For Lipoid Disorders Office Visit 07/27/2014 10:15a Main Office Onofre Balalrd 785.6 Lymph Nodes Francie Sesay Enlargement Office Visit 04/13/2014 3:40p Main Office Paola Blake 785.6 Lymph Nodes P.A. Enlargement 709.9 Skin & Subcutaneous Tissue Disorders Unspec 690.11 Seborrhea Capitis V16.7 History Family Malig Neoplasm Lymphatic & Hematopoietic Oth Office Visit 03/14/2014 4:00p Main Office Juvencio Nesbitt 564.1 Irritable Bowel D.O. Syndrome Office Visit 03/07/2014 3:30p Main Office Juvencio Nesbitt 564.1 Irritable Bowel D.O. Syndrome 724.2 Lumbago 789.9 Abdomen & Pelvis Symptoms Other 729.1 Myalgia & Myositis Unspec Office Visit 01/26/2014 4:00p Main Office Onofre Wells.Anita Sesay M.D. Syndrome 715.09 Osteoarthrosis Generalized Multiple Sites V75.9 Screening Examination Infectious Disease Unspec V70.0 Examination General Medical Routine AT Health Care Facility V76.51 Special Screening For Malignant Neoplasms Colon Office Visit 12/03/2013 9:45a Main Office Paola Blake, 461.1 Sinusitis Acute P.A. Frontal 461.0 Sinusitis Acute Maxillary Office Visit 07/07/2013 10:15a Main Office Onofre Wells.Anita Sesay M.D. Syndrome Office Visit 05/30/2013 8:55a Main Office Onofre Wells.Anita Sesay M.D. Syndrome Office Visit 04/02/2013 10:15a Main Office Onofre Wells.1 Shae Sesay M.D. Syndrome 715.09 Osteoarthrosis Generalized Multiple Sites 737.34 Scoliosis Thoracogenic Office Visit 03/15/2013 11:15a Main Office Marlyn Martin MD 719.45 Pain Joint Pelvic Region & Thigh 789.9 Abdomen & Pelvis Symptoms Other 783.21 Loss Of Weight Office Visit 05/06/2012 2:20p Main Office Paola Blake, 709.8 Skin Disorders P.A. Other Spec Office Visit 03/27/2012 11:00a Main Office Onofre Ballard 724.5 Backache Unspec Francie Sesay Office Visit 01/19/2012 2:30p Main Office Onofre Ballard 724.2 Lumbago Francie Sesay 346.00 Migraine Classical W/O Intractable W/O Status Migrainosus V70.0 Examination General Medical Routine AT Health Care Facility V65.49 Counseling Other Spec 719.45 Pain Joint Pelvic Region & Thigh Office Visit 07/11/2011 10:45a Main Office Onofre Sesay 719.45 Pain Joint M.D. Pelvic Region & Thigh 787.3 Flatulence Eructation & Gas Pain 789.9 Abdomen & Pelvis Symptoms Other Office Visit 01/07/2011 2:45p Main Office Onofre Sesay, 719.45 Pain Joint M.D. Pelvic Region & Thigh 724.2 Lumbago 627.2 Menopausal Or Female Climacteric State, Symptomatic V70.0 Examination General Medical Routine AT Health Care Facility V06.1 Arfhekegnc-Npmvitq-Updzoiwq Combined (DTaP) V07.2 Prophylactic Immunotherapy V76.51 Special Screening For Malignant Neoplasms Colon Office Visit 05/16/2010 1:05p Main Office Onofre Ballard 786.50 Pain Chest Unspec Francie Sesay Office Visit 01/21/2010 10:00a Main Office Onofre Ballard 789.07 Pain Abdominal Francie Sesay Generalized 786.50 Pain Chest Unspec Office Visit 08/11/2009 10:00a Main Office Colleen Schneider MD 461.2 Sinusitis Acute Ethmoidal 709.9 Skin & Subcutaneous Tissue Disorders Unspec Office Visit 03/29/2009 1:05p Main Office Onofre Ballard V70.0 Examination General Francie Sesay Medical Routine AT Health Care Facility V76.51 Special Screening For Malignant Neoplasms Colon Office Visit 01/26/2009 3:00p Main Office Onofre Ballard 461.0 Sinusitis Acute Francie Sesay Maxillary Office Visit 10/27/2008 11:00a Main Office Onofre Ballard 461.2 Sinusitis Acute Francie Sesay Ethmoidal Office Visit 07/17/2008 3:45p Main Office Onofre Ballard 528.9 Oral Soft Tissue Francie Sesay Diseases Other & Unspec Office Visit 07/04/2008 3:15p Main Office Onofre Ballard 229.8 Benign Neoplasm Francie Sesay Other Spec Sites 238.2 Neoplasm Uncertain Skin 216.9 Benign Neoplasm Skin Site Unspec V77.91 Screening For Lipoid Disorders Office Visit 04/15/2008 9:15a Main Office Onofre Sesay M.D. 786.2 Cough 786.59 Pain Chest Other V77.1 Screening Diabetes Mellitus Office Visit 07/09/2007 9:05a Main Office Onofre Ballard 280.9 Iron Deficiency Francie Sesay Anemia Unspec 626.2 Menstruation Excessive Or Frequent 346.00 Migraine Classical W/O Intractable W/O Status Migrainosus Office Visit 05/07/2007 10:15a Main Office Onofre Ballard 280.9 Iron Deficiency Francie Sesay Anemia Unspec 626.2 Menstruation Excessive Or Frequent 346.00 Migraine Classical W/O Intractable W/O Status Migrainosus Office Visit 04/01/2007 3:25p Main Office Onofre Ballard 789.07 Pain Abdominal Francie Sesay Generalized 719.45 Pain Joint Pelvic Region & Thigh 786.2 Cough Office Visit 03/13/2007 11:15a Main Office Eddie Kaur M.D. 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 Right Lower Quadrant Office Visit 07/28/2006 4:15p Main Office Eddie Kaur, 784.1 Throat Pain M.D. 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 Intractable W/O Status Migrainosus 784.0 Headache Office Visit 01/17/2006 10:30a Main Office Eddie Kaur 461.1 Sinusitis Acute M.D. 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 Examination 789.06 Pain Abdominal Epigastric 788.41 Urinary Frequency 427.89 Cardiac Dysrhythmia Other Office Visit 10/01/2005 10:15a Main Office Eddie Kaur, 346.10 Migraine Common W/O M.D. Intractable W/O Status Migrainosus 784.0 Headache Office Visit 08/08/2005 4:15p Main Office Eddie Kaur, 346.10 Migraine Common W/O M.D. Intractable W/O Status Migrainosus Office Visit 07/11/2005 4:45p Main Office Eddie Kaur, 784.0 Headache M.D. Office Visit 06/02/2005 4:30p Main Office Onofre Ballard 461.1 Sinusitis Acute Francie Sesay Frontal Office Visit 01/28/2005 3:45p Main Office Onofre Ballard 786.50 Pain Chest Unspec Francie Sesay 737.30 Scoliosis & Kyphoscoliosis Idiopathic 847.9 Sprains & Strains Unspec Site Of Back 842.01 Sprains & Strains Wrist & Hand Carpal (Joint) 847.1 Sprains & Strains Thoracic Office Visit 01/02/2005 10:30a Main Office Onofre Sesay M.D. 724.2 Lumbago 626.2 Menstruation Excessive Or Frequent V72.31 Routine Senior Project Coordinator Examination Office Visit 12/06/2004 12:55p Main Office Onofre Sesay M.D. 724.2 Lumbago 626.2 Menstruation Excessive Or Frequent V72.31 Routine Senior Project Coordinator Examination Office Visit 11/14/2004 3:15p Main Office Onofre Ballard 487.1 Influenza W/ Other Francie Sesay Respiratory Manifestations Office Visit 09/19/2004 1:30p Main Office Onofre Ballard 236.2 Neoplasm Uncertain Francie Sesay Ovary 626.2 Menstruation Excessive Or Frequent Office Visit 08/26/2004 4:30p Main Office Onofre Ballard 461.0 Sinusitis Acute Francie Sesay Maxillary 216.4 Benign Neoplasm Skin Scalp & Neck Office Visit 08/17/2004 10:45a Main Office dayanara 461.0 Sinusitis Acute Maxillary Office Visit 07/24/2004 10:15a Main Office Onofre Ballard 724.2 Lumbago Francie Sesay 569.3 Hemorrhage Rectum & Anus Office Visit 06/22/2004 8:45a Main Office Onofre Sesay M.D. 724.2 Lumbago 236.2 Neoplasm Uncertain Ovary V76.51 Special Screening For Malignant Neoplasms Colon Office Visit 05/28/2004 1:40p Main Office Onofre Sesay M.D. 724.2 Lumbago 789.09 Pain Abdominal Other Spec Site Office Visit 05/04/2004 11:30a Main Office Eddie Kaur, 346.10 Migraine Common W/O BradenDZhang Intractable W/O Status Migrainosus Office Visit 03/26/2004 4:45p Main Office Onofre Ballard 462 Pharyngitis Acute Francie Sesay 465.9 URI Upper Respiratory Infections Acute Unspec Sites Office Visit 12/07/2003 11:40a Main Office Onofre Ballard 346.00 Migraine Classical Francie Sesay W/O Intractable W/O Status Migrainosus Office Visit 11/20/2003 1:30p Main Office Onofre Ballard 626.2 Menstruation Francie Sesay Excessive Or Frequent 346.00 Migraine Classical W/O Intractable W/O Status Migrainosus V72.3 Examination Gynecological 373.2 Chalazion 478.1 Nasal Cavity & Sinuses Other Diseases V81.6 Screening For Genitourinary Conditions Other & Unspec Office Visit 08/28/2003 3:45p Main Office Onofre Cheema.2 Menstruation Francie Sesay Excessive Or Frequent Office Visit 05/19/2003 9:00a Main Office Breiman, 461.0 Sinusitis Acute Rebecca, N.P. Maxillary 626.6 Metrorrhagia 789.03 Pain Abdominal Right Lower Quadrant Plan of Treatment 08/26/2018 - Paola Blake PZhangAZhangM25.512 Pain in left [id number] Essential ( primary) hypertensionComments:pt advised to report cp, change in angina , sob etContinue same meds with no change. Comply with diet and exercise. Lose weight and watch salt in diet.R79.9 Abnormal finding of blood chemistry, unspecifiedComments:A1C 5.2% , reviewed with ptR10.13 Epigastric painComments: as pt has been having pain at time w just water and when hungry, will check this , disc w ptFollow up:pt is planning to have flu shot through her pharmacy.
[2018-10-11 07:40] VITALS: BP 149/78
--- NOTE | 2018-10-11 08:14 | ED ---
Throat Pain/Nasal Congestion - HPI Summary HPI Summary: 57 yr old female with the complaint of fever for 11 days in a row. 102 TMAX. Each day she has taken antipyretics when temp gets to 100.5 usually every afternoon. She is post op day for cholecystectomy. She denies abdominal pain. She has had headache, sinus pain, coughing. She has to also have MRI of her left shoulder which she is waiting to have as outpatient work up. Denies shortness of breath, photophobia. - History of Current Complaint Chief Complaint: UCGeneralIllness Time Seen by Provider: 10/11/18 07:54 - Allergies/Home Medications Allergies/Adverse Reactions: Allergies Allergy/AdvReac Type Severity Reaction Status Date / Time Iodinated Contrast- Oral and Allergy Severe respiratory/"thought Verified 07:35 IV Dye I was going to " sumatriptan [From Imitrex] Allergy Severe "throat Verified 10/11/18 07:35 feels tight" COFFEE Allergy Nausea Uncoded 10/11/18 07:35 Home Medications: Home Medications Acetaminophen TAB* [Tylenol TAB*] 975 mg PO Q4H PRN 10/11/18 [History Confirmed 10/11/18] Ibuprofen TAB* [Advil TAB*] 400 mg PO Q6H PRN 10/11/18 [History Confirmed ] Pantoprazole TAB (NF) [Protonix TAB (NF)] 40 mg PO DAILY 10/11/18 [History Confirmed 10/11/18] PMH/Surg Hx/FS Hx/Imm Hx Endocrine/Hematology History: Denies: Hx Diabetes Cardiovascular History: Reports: Hx Hypertension Denies: Hx Pacemaker/ICD History: Denies: Hx Renal Disease Sensory History: Denies: Hx Hearing Aid Psychiatric History: Denies: Hx Panic Disorder - Cancer History Hx Chemotherapy: No Hx Radiation Therapy: No - Surgical History Surgery Procedure, Year, and Place: Cholecystectomy, 09/23/18, [place]; Uterine Ablation, 2007, [place]; Right Breast Fibroid, 1995, [place]; [place] Teeth, 1983 ,[place] Infectious Disease History: No Infectious Disease History: Denies: Hx Clostridium Difficile, Hx Hepatitis, Hx Human Immunodeficiency Virus (HIV), Hx of Known/Suspected MRSA, Hx Shingles, Hx Tuberculosis, Hx Known/ Suspected VRE, Hx Known/Suspected VRSA, History Other Infectious Disease, Traveled Outside the [place] in Last 30 Days - Family History Known Family History: Positive: Other - hypertension - Social History Occupation: Employed Full-time Alcohol Use: Rare Substance Use Type: Reports: None Smoking Status (MU): Never Smoked Tobacco Review of Systems Positive: Fever, Chills Positive: Nasal Discharge Positive: Cough All Other Systems Reviewed And Are Negative: Yes Physical Exam Triage Information Reviewed: Yes Vital Signs On Initial Exam: Initial Vitals Temp Pulse Resp BP Pulse Ox 98.7 F 90 15 149/78 100 10/11/18 07:32 12 07:32 12 07:32 10/11/18 07:32 10/11/18 07:32 Vital Signs Reviewed: Yes Appearance: Positive: Well-Appearing, No Pain Distress Skin: Positive: Warm, Skin Color Reflects Adequate Perfusion Head/Face: Positive: Normal Head/Face Inspection Eyes: Positive: EOMI ENT: Positive: Pharynx normal, TMs normal. Negative: Nasal congestion Respiratory/Lung Sounds: Positive: Clear to Auscultation, Breath Sounds Present Cardiovascular: Positive: RRR. Negative: Murmur Abdomen Description: Positive: Nontender, Other: - trochar entrance sites not red, and no drainage. Musculoskeletal: Positive: Strength/ROM Intact Neurological: Positive: Sensory/Motor Intact, Alert, Oriented to Person Place, Time, CN Intact II-III Psychiatric: Positive: Normal - Kerline Coma Scale Best Eye Response: 4 - Spontaneous Best Motor Response: 6 - Obeys Commands Best Verbal Response: 5 - Oriented Coma Scale Total: 15 Diagnostics - Vital Signs Vital Signs Temp Pulse Resp BP Pulse Ox 10/11/18 07:32 98.7 F 90 15 149/78 100 - Laboratory Lab Statement: Any lab studies that have been ordered have been reviewed, and results considered in the medical decision making process. EENT Course/Dx - Course Course Of Treatment: 57 yr old female with the complaint of fever of 11 days in a row. She has been recommended to go to the ER now for further work up for post op fever 11 days in a row. She does not want an ambulance. She is not toxic appearing, and she is not in any distress at this point. - Diagnoses Provider Diagnoses: Postoperative fever, Hypertension Discharge - Sign-Out/Discharge Documenting (check all that apply): Patient Departure All imaging exams completed and their final reports reviewed: No Studies - Discharge Plan Condition: Good Disposition: HOME-RECOMMEND TO ED Patient Education Materials: Hypertension (ED), Fever in Adults (ED) Referrals: Paola Blake PA [Primary Care Provider] - Additional Instructions: PLEASE GO TO THE ER AFTER DISCHARGE FROM URGENT CARE FOR WORK UP FOR YOUR POST OPERATIVE FEVER. DO NOT DELAY. - Billing Disposition and Condition Condition: GOOD Disposition: Home-Recommend to ED
== END 2018-10-11 08:20 | disposition home health service (06) ==
LOC: UCCORT 07:18
DX: R50.82 Postprocedural fever (principal); I10 Essential (primary) hypertension; Z88.8 Allergy status to other drugs, medicaments and biological substances; Z91.041 Radiographic dye allergy status
CPT/HCPCS: 99212; G0463

== ENCOUNTER 2018-10-11 12:19 | Emergency (ER) | payer BC ==
--- NOTE | 2018-10-11 14:10 | ED ---
Upper Extremity Pain - HPI Summary HPI Summary: A 57 y/o female presents to [facility] with a chief complaint of fever since . The patient was scheduled to have an MRI but cannot due to her cholecystectomy on 09/23/18. She has had a fever of about 102.4 with chills every day since her surgery. She also c/o abd pain, cough, left shoulder pain and pain in the surface of her skin. She denies Erythema (eyes), Sore throat, Chest pain, Shortness of Breath, Vomiting, Nausea,Dysuria, Hematuria, Myalgia, Edema, Rash and Dizziness. She reports a dark yellow urine color. She was referred to come into the ED from the in [place]. - History of Current Complaint Chief Complaint: EDFever Stated Complaint: FEVER FOR 11 DAYS/LEFT ARM PAIN Time Seen by Provider: 10/11/18 12:43 Hx Obtained From: Patient Hx Last Menstrual Period: N/A Mechanism Of Injury: Unknown Onset/Duration: Started Weeks Ago, Still Present Timing: Constant Severity Initially: Moderate Severity Currently: Moderate Pain Location: Shoulder Aggravating Factor(s): Nothing Alleviating Factor(s): Nothing Associated Signs & Symptoms: Positive: Other - positive: cough. Negative: Nausea, Vomiting - Allergies/Home Medications Allergies/Adverse Reactions: Allergies Allergy/AdvReac Type Severity Reaction Status Date / Time Iodinated Contrast- Oral and Allergy Severe respiratory/"thought Verified 12:33 IV Dye I was going to " sumatriptan [From Imitrex] Allergy Severe "throat Verified 10/11/18 12:33 feels tight" COFFEE Allergy Nausea Uncoded 10/11/18 07:35 PMH/Surg Hx/FS Hx/Imm Hx Endocrine/Hematology History: Denies: Hx Diabetes Cardiovascular History: Reports: Hx Hypertension Denies: Hx Pacemaker/ICD History: Denies: Hx Renal Disease Sensory History: Denies: Hx Hearing Aid Psychiatric History: Denies: Hx Panic Disorder - Cancer History Hx Chemotherapy: No Hx Radiation Therapy: No - Surgical History Surgery Procedure, Year, and Place: Cholecystectomy, 09/23/18, [place]; Uterine Ablation, 2007, [place]; Right Breast Fibroid, 1995, [place]; [place] Teeth, 1983 ,[place] Infectious Disease History: No Infectious Disease History: Denies: Hx Clostridium Difficile, Hx Hepatitis, Hx Human Immunodeficiency Virus (HIV), Hx of Known/Suspected MRSA, Hx Shingles, Hx Tuberculosis, Hx Known/ Suspected VRE, Hx Known/Suspected VRSA, History Other Infectious Disease, Traveled Outside the [place] in Last 30 Days - Family History Known Family History: Positive: Other - hypertension - Social History Alcohol Use: Rare Substance Use Type: Reports: None Smoking Status (MU): Never Smoked Tobacco Review of Systems Positive: Fever, Chills Negative: Erythema Negative: Sore Throat Negative: Chest Pain Positive: Cough. Negative: Shortness Of Breath Positive: Abdominal Pain. Negative: Vomiting, Nausea Genitourinary: Other - positive: dark yellow urine Negative: dysuria, hematuria Positive: Arthralgia - left shoulder pain. Negative: Myalgia, Edema Positive: Other - positive: skin pain. Negative: Rash Neurological: Negative - dizziness All Other Systems Reviewed And Are Negative: Yes Physical Exam - Summary Physical Exam Summary: Constitutional: Well-developed, Well-nourished, Alert. (-) Distressed Skin: Warm, Dry HENT: Normocephalic; Atraumatic Eyes: Conjunctiva normal Neck: Musculoskeletal ROM normal neck. (-) JVD, (-) Stridor, (-) Tracheal deviation Cardio: Rhythm regular, rate normal, Heart sounds normal; Intact distal pulses; The pedal pulses are 2+ and symmetric. Radial pulses are 2+ and symmetric. (-) Murmur Pulmonary/Chest wall: Effort normal. (-) Respiratory distress, (-) Wheezes, (-) Rales Abd: Soft, (-) epigastric tenderness, (-) Distension, (-) Guarding, (-) Rebound Musculoskeletal: (-) Edema, Left Shoulder has no ROM and is TTP, no appreciable joint effusion Lymph: (-) Cervical adenopathy Neuro: Alert, Oriented x3 Psych: Mood and affect Normal Triage Information Reviewed: Yes Vital Signs On Initial Exam: Initial Vitals Temp Pulse Resp BP Pulse Ox 99.6 F 94 16 143/78 99 10/11/18 12:27 10/11/18 12:27 10/11/18 12:27 10/11/18 12:27 10/11/18 12:27 Vital Signs Reviewed: Yes Diagnostics - Vital Signs Vital Signs Temp Pulse Resp BP Pulse Ox 10/11/18 14:07 99 10/11/18 14:05 85 98 10/11/18 13:18 100 137/85 98 10/11/18 13:00 101 99 10/11/18 12:49 93 98 10/11/18 12:48 84 131/84 99 10/11/18 12:27 99.6 F 94 16 143/78 99 - Laboratory Result Diagrams: 10/11/18 14:55 10/11/18 14:55 Lab Statement: Any lab studies that have been ordered have been reviewed, and results considered in the medical decision making process. - Radiology CXR Radiology Interpretation Completed By: Radiologist Summary of Radiographic Findings: #. Lingular pneumonia. Radiographic follow-up after therapy warranted to assess for. resolution. #. Stigmata of probable chronic obstructive pulmonary disease. Correlate with clinical. assessment. ED physician has reviewed this imaging report. Re-Evaluation - Re-Evaluation First Eval Re-Evaluation Time: 16:45 Change: Improved Comment: Pt is ready for DC. Course/Dx - Course Course Of Treatment: A 57 y/o female presents to [facility] with a chief complaint of fever since 10/01/18. The patient was scheduled to have an MRI but cannot due to her cholecystectomy. She has had a fever of about 102.4 with chills every day since her surgery. She also c/o abd pain, cough, left shoulder pain and pain in the surface of her skin. She denies Erythema (eyes), Sore throat, Chest pain, Shortness of Breath, Vomiting, Nausea,Dysuria, Hematuria, Myalgia, Edema, Rash and Dizziness. She reports a dark yellow urine color. She was referred to come into the ED from the in [place]. Her PE revealed that her left shoulder has no ROM and is TTP, no appreciable joint effusion. CXR impression: Lingular pneumonia. Radiographic follow-up after therapy warranted to assess for resolution. Stigmata of probable chronic obstructive pulmonary disease. Correlate with clinical assessment. Lab results obtained and WNL. In the ED course she was given Toradol IV and Zithromax PO. Dx: Calcific tendonitis of left shoulder, Lingular PNA. She was given a prescription for zithromax and instructed to continue with at home. The patient was discharged home and instructed to follow up with Dr. Aquino. She is agreeable with this plan. - Diagnoses Provider Diagnoses: Lingular pneumonia, Calcific tendinitis of left shoulder Discharge - Sign-Out/Discharge Documenting (check all that apply): Patient Departure - DC - Discharge Plan Condition: Stable Disposition: HOME Prescriptions: Azithromycin TAB* [Zithromax TAB (Z-DIO) 250 mg #6 tabs] 250 mg PO DAILY #4 tab Patient Education Materials: Calcific Tendinitis (ED), Pneumonia (ED) Referrals: Paola Blake PA [Primary Care Provider] - (2-3 days) Tracy Aquino MD [Medical Doctor] - (2-3 days) Additional Instructions: Follow up with your PCP and sindy [place], in 2-3 days. RETURN TO THE EMERGENCY DEPARTMENT FOR CHANGING OR WORSENING SYMPTOMS - Attestation Statements Document Initiated by Scribe: Yes Documenting Scribe: Jt Mulligan Provider For Whom Namitaibe is Documenting (Include Credential): Jason Lemons MD Scribe Attestation: Jt Huggins, scribed for Jason Lemons MD on 10/11/18 at 1557. Status of Scribe Document: Ready
[2018-10-11 15:12] LABS: Hematocrit 36 % (35-47); Hemoglobin 11.8 g/dl (12.0-16.0); Mean Corpuscular HGB Conc 33 g/dl (31-36); Mean Corpuscular Hemoglobin 29 pg (27-31); Mean Corpuscular Volume 89 fL (80-97); Red Blood Count 4.01 10^6/ul (4.00-5.40); Red Cell Distribution Width 13 % (10.5-15); White Blood Count 10.3 10^3/ul (3.5-10.8)
[2018-10-11 15:16] LABS: INR 1.09 (0.77-1.02)
[2018-10-11 15:25] LABS: EGFR Non-African American 121.5 (>60)
[2018-10-11] MEDS ORDERED: Azithromycin TAB* 250 MG PO ONE (15:43)
[2018-10-11 16:08] LABS: Urine Appearance Clear; Urine Blood 1+ (Negative); Urine Color Yellow; Urine Ketones Negative (Negative); Urine Protein Negative (Negative); Urine Red Blood Cell Absent (Absent); Urine Specific Gravity 1.006 (1.010-1.030); Urine Urobilinogen Negative (Negative); Urine White Blood Cell Trace(0-5/hpf) (Absent)
[2018-10-11] MEDS: Ketorolac INJ* 30 MG/ML 1 ML VIAL IV PUSH ONE ×2 (16:31→16:36)
[2018-10-11] MEDS ORDERED: Ketorolac INJ* 30 MG/ML 1 ML VIAL ONE (16:35)
[2018-10-11 16:44] VITALS: BP 144/91
[2018-10-11 17:08] LABS: Monocytes % 2 %
[2018-10-11 17:15] LABS: ABS Neutrophils 7.4 10^3/ul (1.5-7.7)
[2018-10-11 17:16] LABS: Mean Platelet Volume 8.7 fL (7.4-10.4); Platelet Count 405 10^3/ul (150-450)
--- NOTE | 2018-10-13 05:58 | PN ---
Progress Note - Progress Note Date of Service: 10/13/18 Note: The patient's urine culture grew normal edu and strep group B 1 through 10, 000. Patient was placed on azithromycin which will treat this though this is likely contaminant. no further action required
== END 2018-10-11 16:44 | disposition home or self-care (01) ==
LOC: ED 12:19
DX: J18.9 Pneumonia, unspecified organism (principal); M75.32 Calcific tendinitis of left shoulder; Z90.49 Acquired absence of other specified parts of digestive tract; Z88.8 Allergy status to other drugs, medicaments and biological substances; Z91.041 Radiographic dye allergy status
CPT/HCPCS: 36415; 71046; 80053; 81003; 81015; 83605; 85025; 85060; 85610; 85652; 85730; 86140; 87040; 87077; 87086; 96374; 99283; A9270-GY; J1885

== ENCOUNTER 2019-01-11 21:18 | Emergency (ER) | payer BC ==
[2019-01-11 21:31] VITALS: BP 146/90
--- NOTE | 2019-01-11 21:31 | UC ---
Respiratory Complaint HPI - HPI Summary HPI Summary: 58 yo female presents with b/l ear pain for the last 4-5 days worse on the right. Over the last 2 days has had a dry cough and felt hot/cold, but did not take her temperature. 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 This pain went away and has not returned or been reproduced since. She tells me that about 5-6 months ago she had PNA in her left lung. She denies dizziness, headache, sore throat, sinus symptoms, SOB, chest pain, n/v, dysuria. - History of Current Complaint Chief Complaint: UCRespiratory Stated Complaint: URI NECK PAIN Time Seen by Provider: 01/11/19 21:29 Hx Obtained From: Patient Hx Last Menstrual Period: N/A Onset/Duration: Gradual Onset Severity Initially: Mild Severity Currently: Mild Pain Intensity: 2 Pain Scale Used: 0-10 Numeric Character: Cough: Nonproductive - Allergies/Home Medications Allergies/Adverse Reactions: Allergies Allergy/AdvReac Type Severity Reaction Status Date / Time Iodinated Contrast- Oral and Allergy Severe respiratory/"thought Verified 21:31 IV Dye I was going to " sumatriptan [From Imitrex] Allergy Severe "throat Verified 01/11/19 21:31 feels tight" COFFEE Allergy Nausea Uncoded 01/11/19 21:31 Home Medications: Home Medications Anjum/D3/Mag11/Zinc/Sybase Developer/Kaushik/Bor [Caltrate 600+D Plus] 1 tab PO 01/11/19 [History] Cholecalciferol CAP/TAB(NF) [Vitamin D3 CAP/TAB (NF)] 01/11/19 [History] Cyanocobalamin TAB* [Vitamin B12 TAB*] 01/11/19 [History] Mv-Min/Vit C/Glut/Lysine/Hb124 [Airborne Effervescent Tablet] 1 each PO ONCE PRN 01/11/19 [History Confirmed 01/11/19] Beatrice-3 Fatty Acids (Nf) [Fish Oil (NF)] 1,000 mg PO DAILY 01/11/19 [History Confirmed 01/11/19] PMH/Surg Hx/FS Hx/Imm Hx Cardiovascular History: Hypertension GI/ History: Gastroesophageal Reflux - Surgical History Surgical History: Yes Surgery Procedure, Year, and Place: Cholecystectomy, 09/23/18, [place]; Uterine Ablation, 2007, [place]; Right Breast Fibroid, 1995, [place]; [place], 1983 ,[place] - Family History Known Family History: Positive: Hypertension - Social History Occupation: Employed Full-time Lives: With Family Alcohol Use: Rare Substance Use Type: None Smoking Status (MU): Never Smoked Tobacco - Immunization History Most Recent Influenza Vaccination: no Review of Systems All Other Systems Reviewed And Are Negative: Yes Constitutional: Positive: Negative Skin: Positive: Negative Eyes: Positive: Negative ENT: Positive: Ear Ache Respiratory: Positive: Cough Cardiovascular: Positive: Negative Neurovascular: Positive: Negative Neurological: Positive: Negative Psychological: Positive: Negative Physical Exam - Summary Physical Exam Summary: GENERAL: NAD. WDWN. No pain distress. SKIN: No rashes, sores, lesions, or open wounds. HEENT: Head: AT/NC Eyes: Conjunctiva clear without inflammation or discharge. Ears: Hearing grossly normal. RIGHT ear occluded by cerumen. S/p right ear irrigation: TMs intact, no bulging, erythema, or edema. Nose: Nasal mucosa pink and moist. NTTP maxillary and frontal sinus. Throat: Posterior oropharynx without exudates, erythema, or tonsillar enlargement. Uvula midline. NECK: Supple. Nontender. No lymphadenopathy. FROM. No vertebral tenderness. CHEST: Scant wheezing in right lung. No r/r. No accessory muscle use. Breathing comfortably and in no distress. CV: RRR. Without m/r/g. Pulses intact. Cap refill <2seconds MSK: No right rib TTP. No trapezius or cervical pain. NEURO: Alert. PSYCH: Age appropriate behavior. Triage Information Reviewed: Yes Vital Signs: Initial Vital Signs Temp 100 F 01/11/19 21:25 Pulse 94 01/11/19 21:25 Resp 16 01/11/19 21:25 BP 146/90 01/11/19 21:25 Pulse Ox 100 01/11/19 21:25 Vital Signs Reviewed: Yes Respiratory Course/Dx - Course Course Of Treatment: I suspect the pain she felt for a moment earlier was a brief muscle spasm that has since resolved. Pt is afebrile and well appearing. There was a mild amount of cerumen in her right ear that was removed with ear irrigation and she had some mild relief of her ear discomfort. CXR: no radiologist reading after 1800, but wet read by myself is negative for PNA. I advised pt to take tylenol/ibuprofen for any discomfort and f/u if she develops a fever or worsening symptoms. - Differential Dx/Diagnosis Provider Diagnosis: Cough, Cerumen impaction, Muscle spasm Discharge - Sign-Out/Discharge Documenting (check all that apply): Patient Departure All imaging exams completed and their final reports reviewed: No - Discharge Plan Condition: Stable Disposition: HOME Referrals: Paola Blake PA [Primary Care Provider] - Additional Instructions: If you develop a fever, shortness of breath, chest pain, new or worsening symptoms - please call your PCP or go to the ED. Your blood pressure was high at todays visit. Please see your primary provider within 4 weeks for recheck and re-evaluation. 1) I believe the pain your experienced in your back to neck was a one time muscle spasm - this has since resolved. 2) Your chest x-ray appeared normal today, but the radiologist will review this tomorrow for an official reading. 3) I recommend you take tylenol or ibuprofen as directed for your discomfort and low-grade fever. If your symptoms worsen - please be rechecked. - Billing Disposition and Condition Condition: STABLE Disposition: Home
== END 2019-01-11 22:05 | disposition home or self-care (01) ==
LOC: UCEAST 21:18
DX: R05 Cough (principal); M62.838 Other muscle spasm; H61.21 Impacted cerumen, right ear; I10 Essential (primary) hypertension
CPT/HCPCS: 71046; 99212; G0463

== ENCOUNTER 2019-04-10 14:28 | Emergency (ER) | payer BC ==
--- NOTE | 2019-04-10 14:43 | UC ---
Ear Complaint HPI - HPI Summary HPI Summary: Right earache the past few days. Head congestion the past 2 weeks and now with right sided sinus pressure. - History of Current Complaint Stated Complaint: RIGHT SIDED EAR CONCERN Time Seen by Provider: 04/10/19 14:43 Hx Obtained From: Patient Hx Last Menstrual Period: N/A ?: No Onset/Duration: Gradual Onset Severity Initially: Mild Severity Currently: Mild Aggravating Factors: Nothing Alleviating Factors: Nothing Associated Signs/Symptoms: Positive: URI Symptoms - Allergies/Home Medications Allergies/Adverse Reactions: Allergies Allergy/AdvReac Type Severity Reaction Status Date / Time Iodinated Contrast- Oral and Allergy Severe respiratory/"thought Verified 14:46 IV Dye I was going to " sumatriptan [From Imitrex] Allergy Severe "throat Verified 04/10/19 14:46 feels tight" [id number] Antimigraine Allergy See Comment Verified 04/10/19 14:46 Agents COFFEE Allergy Nausea Uncoded 04/10/19 14:46 PMH/Surg Hx/FS Hx/Imm Hx Previously Healthy: Yes Cardiovascular History: Hypertension - Surgical History Surgical History: Yes Surgery Procedure, Year, and Place: Cholecystectomy, 09/23/18, [place]; Uterine Ablation, 2007, [place]; Right Breast Fibroid, 1995, [place]; [place] Teeth, 1983 ,[place] - Family History Known Family History: Positive: Hypertension, Other - hypertension - Social History Alcohol Use: Rare Substance Use Type: None Smoking Status (MU): Never Smoked Tobacco - Immunization History Most Recent Influenza Vaccination: no Review of Systems All Other Systems Reviewed And Are Negative: Yes ENT: Positive: Ear Ache - right earache, Sinus Congestion, Sinus Pain/ Tenderness - Right sided congestion and pain Is Patient Immunocompromised?: No Physical Exam Triage Information Reviewed: Yes Appearance: Well-Appearing, No Pain Distress, Well-Nourished Vital Signs Reviewed: Yes Eyes: Positive: Conjunctiva Clear ENT: Positive: Pharynx normal, Nasal congestion, Nasal drainage - Yellow purulent drainage right nose with swollen red turbinate, left side normal, mild right sided maxillary tenderness on palpation., TMs normal, Sinus tenderness, Uvula midline Neck: Positive: Supple, Nontender, No Lymphadenopathy Respiratory: Positive: Lungs clear, Normal breath sounds, No respiratory distress, No accessory muscle use Cardiovascular: Positive: RRR, No Murmur, Pulses Normal, Brisk Capillary Refill Musculoskeletal Exam: Normal Neurological Exam: Normal Psychological Exam: Normal Skin Exam: Normal Ear Complaint Course/Dx - Course Course Of Treatment: Comfortable here, what pt thought was an ear infection is actually a sinus infection. - Differential Dx/Diagnosis Provider Diagnosis: Sinusitis Discharge - Sign-Out/Discharge Documenting (check all that apply): Patient Departure All imaging exams completed and their final reports reviewed: No Studies - Discharge Plan Condition: Fair Disposition: HOME Prescriptions: Amoxicillin PO (*) [Amoxicillin 875 MG (*)] 875 mg PO BID 10 Days #20 tab Patient Education Materials: Sinusitis (ED) Referrals: Eddie Kaur MD [Primary Care Provider] - Additional Instructions: Tylenol or Motrin for pain. Definite follow up with your primary Care doctor if no improvement in 3-4 days - Billing Disposition and Condition Condition: FAIR Disposition: Home - Attestation Statements Provider Attestation: I was available for consult. This patient was seen by the RUTHANN. The patient was not presented to , seen by or examined by oh -Carrillo Carter MD
[2019-04-10 14:53] VITALS: BP 150/84
== END 2019-04-10 15:06 | disposition home or self-care (01) ==
LOC: UCCORT 14:28
DX: J01.90 Acute sinusitis, unspecified (principal); I10 Essential (primary) hypertension; Z88.8 Allergy status to other drugs, medicaments and biological substances; Z91.041 Radiographic dye allergy status; Z91.018 Allergy to other foods
CPT/HCPCS: 99212; G0463

== ENCOUNTER 2019-08-24 18:54 | Emergency (ER) | payer BC ==
--- OUTSIDE RECORDS SUMMARY | 2019-08-24 19:01 | XMS REPORT | Continuity of Care Document ---
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 Onset: 01/01/2018 Note: numb dry lip - comes and goes Calcific tendinitis of left shoulder Tori Santos MD Onset: 10/15/2018 Social History Type Date Description Comments Sex Unknown ETOH Use Rarely consumes alcohol special occasions, 4 x year Tobacco Use Start: Unknown Patient has never smoked Recreational Drug Use Denies Drug Use Smoking Status Reviewed: 07/08/19 Patient has never smoked Exercise Type/Frequency Exercises sporadically Allergies, Adverse Reactions, Alerts Active Allergies Reaction Severity Comments Date Triptans throat tightness Severe 01/01/2018 FD&C Red 40 Mota Severe vomiting, headache 01/01/2018 Iopamidol 06/09/2019 Imitrex 06/09/2019 Medications Active Medications SIG Qnty Indications Ordering Date Provider Fish Oil 1 tab once a day Unknown 1200mg Capsules DR Vitamin B12 one tab sublingually Unknown 5000mcg 3 x week Tablets Sub Vitamin D3 1 cap daily Unknown 1000Unit Capsules Caltrate 600+D Plus take one capsule by Unknown Minerals mouth daily Capsules Benazepril HCL 1 by mouth every day Unknown 5mg Tablets Pantoprazole Sodium 1 tab daily Paola Blake S., PA 20mg Tablets Fluticasone 2 sprays each Unknown Propionate nostril daily as 50mcg/Act needed Suspension Medications Administered in Office Medication SIG Qnty Indications Ordering Provider Date Triamcinolone (Kenalog) Tori Santos MD 10/15/2018 Injection Immunizations Description No Information Available Vital Signs Date Vital Result Comment 07/08/2019 9:52am Heart Rate 72 /min Respiratory Rate 16 /min Body Temperature 97.5 F 06/16/2019 11:24am Height 63 inches 5'3" Weight 117.00 lb Heart Rate 60 /min BP Systolic Sitting 114 mmHg BP Diastolic Sitting 80 mmHg Respiratory Rate 16 /min Body Temperature 97.6 F BMI (Body Mass Index) 20.7 kg/m2 Results Description No Information Available Procedures Description No Information Available Medical Devices Description No Information Available Encounters Type Date Location Provider Dx Diagnosis Office Visit 06/16/2019 Surgical Dawson Austin K64.4 Residual 11:15a [facility] Cardona MD hemorrhoidal skin tags Assessments Date Code Description Provider 06/16/2019 K64.4 Residual hemorrhoidal skin tags Dawson Cardona MD Plan of Treatment 06/16/2019 - Dawson Cardona MDK64.4 Residual hemorrhoidal skin tagsComments: No acute process noted at this time. She will return in late June for reevaluation. She understands to call with any concerns or new issues Functional Status Description No Information Available Mental Status Description No Information Available Referrals Description No Information Available
--- OUTSIDE RECORDS SUMMARY | 2019-08-24 19:01 | XMS REPORT | Continuity of Care Document ---
:1960 External Reference #:[id number] Author Name Sasha Conrad CNM Address [address] [place] [address] Care Team Providers Name Role Phone Eddie Kaur M.D. 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 Active Problems Provider Date Screening for malignant neoplasm of cervix Lucero Thomas MD Onset: 2011 Gynecologic examination Lucero Thomas MD Onset: 10/08/2012 Social History Type Date Description Comments Sex Unknown Tobacco Use Start: Unknown Patient has never smoked Allergies, Adverse Reactions, Alerts Active Allergies Reaction Severity Comments Date Imitrex 05/14/2005 Contrast Dye 10/08/2012 Medications Active Medications SIG Qnty Indications Ordering Provider Date Caltrate 600+D Unknown Fish Oil Unknown Vitamin B12 Unknown Vitamin D3 Unknown Benazepril HCL 1 po qd Unknown 5mg Tablets Medications Administered in Office Medication SIG Qnty Indications Ordering Provider Date PT SCRN Tbco Id as Non User Sasha Conrad CNM 08/18/2019 Injection PT SCRN Tbco Id as Non User Lucero Thomas MD 05/27/2019 Injection Immunizations Description No Information Available Vital Signs Date Vital Result Comment 08/18/2019 3:13pm BP Systolic 112 mmHg BP Diastolic 68 mmHg Height 62 inches 5'2" Weight 120.00 lb BMI (Body Mass Index) 21.9 kg/m2 Last Menstrual Period 8661438 4 Parity 4 05/27/2019 11:18am BP Systolic 122 mmHg BP Diastolic 78 mmHg Height 62 inches 5'2" Weight 118.00 lb BMI (Body Mass Index) 21.6 kg/m2 Last Menstrual Period 1056543 4 Parity 4 Results Test Date Facility Test Result H/L Range Note Laboratory test 05/27/2019 [facility] SEE RESULT 1 finding [place], [place] [address] BELOW [phone] 1 SEE RESULT BELOW Name: ZIGGY BARRIOS : [address]: Lucero Thomas MD Acct: [id number] Unit: [id number] AGE: 58 Location: [facility] Re05/27/19 SEX: F Status: REG REF SPEC: [id number] DEVON: 05/27/19-[address]: Lucero Thomas MD REQ: [id number] RECD: 05/27/195957 STATUS: CHERIE MURRAY DR: Eddie Kaur MD _ ORDERED: TP IMAGE ANALYS, HPV/Thin Prep COMMENTS: [id number] EPITHELIAL CELL ABNORMALITIES Atypical squamous cells of undetermined significance Date Time Test Result Flag (u) Normal Range 05/27/19 1300 HPV RNA Negative Negative The high-risk HPV types detected by the assay include: 16, 18, 31, 33, 35, 39, 45, 51, 52, 56, 58, 59, 66, and 68. A. Ectocervical/Endocervical Specimen Adequacy: Satisfactory of evaluation Transformation zone component cannot be definitely identified due to presence of atrophy or other hormonal changes Patient Information: HPV: High risk HPV RNA testing regardless of pap results. Actual Specimen Date: 05/27/19 LMP If Unknown: 2006 Date of Last Specimen: 03/09/18 Signed by and Reported on: Shawnee Cummings MD 05/31/19 0847 This Pap test was evaluated with the assistance of the [employer] Test Imaging System. Due to cytologic findings at the pen maker microscope, comprehensive manual rescreening by a Purchasing Administrator may be required. The Pap Smear is [...] years. END OF REPORT DEPARTMENT OF PATHOLOGY, [address] [place] [address] Grabiel Scott M.D. 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 We will do sono to rule out anything related to the lump and pain. Call tomorrow to scheduled @ [facility]. Consider follow up with MD if not improving or worse. Functional Status Description No Information Available Mental Status Description No Information Available Referrals Description No Information Available
--- NOTE | 2019-08-24 19:20 | UC ---
Cardiac HPI - HPI Summary HPI Summary: 58-year-old woman comes in with a chief complaint of chest pain. Started 2 days ago. She just seems maneuverings and had sudden onset of lower chest pain. Pain was sharp and rather severe. Pain does radiate to the right side of her chest. At times it's more pressure. It severe at times. Has been able to eat. Rest has made it better. Denies any sweating or shortness of breath or nausea. No fevers no chills no chest congestion. Does have a history of hypertension. Her gallbladder has been removed. - History of Current Complaint Stated Complaint: RIGHT CHEST PAIN Time Seen by Provider: 08/24/19 19:17 Hx Last Menstrual Period: N/A - Allergy/Home Medications Allergies/Adverse Reactions: Allergies Allergy/AdvReac Type Severity Reaction Status Date / Time Iodinated Contrast Media Allergy Severe respiratory/"thought Verified 08/24/19 19:25 [Iodinated Contrast- Oral I was and IV Dye] going to " sumatriptan [From Imitrex] Allergy Severe "throat Verified 08/24/19 19:25 feels tight" [id number] Antimigraine Allergy See Comment Verified 08/24/19 19:25 Agents COFFEE Allergy Nausea Uncoded 08/24/19 19:25 PMH/Surg Hx/FS Hx/Imm Hx Previously Healthy: Yes Cardiovascular History: Hypertension - Surgical History Surgical History: Yes Surgery Procedure, Year, and Place: Cholecystectomy, 09/23/18, [place]; Uterine Ablation, 2007, [place]; Right Breast Fibroid, 1995, [place]; [place] Teeth, 1983 ,[place] - Family History Known Family History: Positive: Hypertension, Other - hypertension - Social History Alcohol Use: Rare Substance Use Type: None Smoking Status (MU): Never Smoked Tobacco - Immunization History Most Recent Influenza Vaccination: no Review of Systems All Other Systems Reviewed And Are Negative: Yes Constitutional: Positive: Other - SEE HPI Skin: Positive: Negative Eyes: Positive: Negative ENT: Positive: Negative Respiratory: Positive: Negative Cardiovascular: Positive: Chest Pain Gastrointestinal: Positive: Negative Motor: Positive: Negative Neurovascular: Positive: Negative Musculoskeletal: Positive: Negative Neurological: Positive: Negative Psychological: Positive: Negative Is Patient Immunocompromised?: No Physical Exam Triage Information Reviewed: Yes Appearance: Well-Appearing, No Pain Distress, Well-Nourished Vital Signs Reviewed: Yes Eye Exam: Normal Eyes: Positive: Conjunctiva Clear Neck: Positive: Supple Respiratory: Positive: Lungs clear, Normal breath sounds, No respiratory distress Cardiovascular: Positive: RRR Abdomen Description: Positive: Nontender, Soft Bowel Sounds: Positive: Present Musculoskeletal: Positive: Strength Intact, ROM Intact, No Edema Psychological: Positive: Age Appropriate Behavior Skin Exam: Normal Diagnostics - EKG Cardiac Rate: NL - at 1908 Cardiac Rhythm: Sinus: Normal - 64bpm ST Segment: Normal - Borderline short SD interval at 115 - Assessment/Plan Course Of Treatment: I discussed the EKG with the patient. I do not see any ischemic changes on EKG at this time. I recommended further evaluation in the emergency department. Patient prefers to go by POV. - Clinical Impression Provider Diagnosis: Chest pain Discharge ED - Sign-Out/Discharge Documenting (check all that apply): Patient Departure All imaging exams completed and their final reports reviewed: No Studies - Discharge Plan Condition: Stable Disposition: HOME-RECOMMEND TO ED Patient Education Materials: Chest Pain (ED) Referrals: Eddie Kaur MD [Primary Care Provider] - Additional Instructions: GO DIRECTLY TO THE EMERGENCY DEPARTMENT FOR FURTHER EVALUATION OF YOUR CHEST PAIN. - Billing Disposition and Condition Condition: STABLE Disposition: Home-Recommend to ED
[2019-08-24 19:24] VITALS: BP 149/77
== END 2019-08-24 19:45 | disposition home health service (06) ==
LOC: UCEAST 18:54
DX: R07.9 Chest pain, unspecified (principal); I10 Essential (primary) hypertension; Z88.8 Allergy status to other drugs, medicaments and biological substances; Z91.018 Allergy to other foods; Z82.49 Family history of ischemic heart disease and other diseases of the circulatory system
CPT/HCPCS: 93005; 99212; G0463

== ENCOUNTER 2019-08-24 20:03 | Emergency (ER) | payer BC ==
[2019-08-24 20:40] LABS: ABS Eosinophils 0.2 10^3/ul (0-0.6); ABS Lymphocytes 2.6 10^3/ul (1.0-4.8); ABS Monocytes 0.5 10^3/ul (0-0.8); ABS Neutrophils 2.7 10^3/ul (1.5-7.7); Eosinophil % 3.2 %; Hematocrit 40 % (35-47); Hemoglobin 13.8 g/dL (12.0-16.0); Lymphocyte % 43.2 %; Mean Corpuscular HGB Conc 34 g/dL (31-36); Mean Corpuscular Hemoglobin 30 pg (27-31); Mean Corpuscular Volume 88 fL (80-97); Mean Platelet Volume 9.4 fL (7.4-10.4); Platelet Count 264 10^3/uL (150-450); Red Blood Count 4.59 10^6 /uL (3.70-4.87); Red Cell Distribution Width 13 % (10-15); White Blood Count 6.1 10^3/uL (3.5-10.8)
[2019-08-24 20:46] LABS: INR 1.03 (0.82-1.09)
[2019-08-24 20:55] LABS: Albumin 4.5 g/dL (3.2-5.2); Albumin/Globulin Ratio 1.8 (1-3); BUN/Creatinine Ratio 18.8 (8-20); Calcium 9.4 mg/dL (8.6-10.3); EGFR African American 115.3 (>60); EGFR Non-African American 95.3 (>60); Globulin 2.5 g/dL (2-4); Potassium 4.2 mmol/L (3.5-5.0); Total Bilirubin 0.9 mg/dL (0.2-1.0)
--- NOTE | 2019-08-24 21:48 | ED ---
HPI Chest Pain - HPI Summary HPI Summary: This patient is a 58 year old F presenting to [facility] accompanied by with a chief complaint of central chest/epigastric pain radiating to right side of chest to shoulder blades since 08/22/19 at 1500. Pt reports she was eating onion rings when the pain began. She thought she had indigestion and had tums, but the CP did not reside. At night, while sleeping there was no CP. When she woke up the pain returned, and then the pain resided throughout the day. Her pain is better today than 08/23/19. Patient reports normal urination, and slight fever. Patient denies loss of appetite, vomiting, nausea. Pt has had gall bladder removal and high blood pressure. Pt has no Hx of stomach issues. Pt has FHx of skin cancer. - History of Current Complaint Chief Complaint: EDChestPainROMI Time Seen by Provider: 08/24/19 21:36 Hx Obtained From: Patient Hx Last Menstrual Period: N/A Onset/Duration: Started Days Ago, Still Present Time of Onset: 15:00 - 08/22/19 Timing: Constant Initial Severity: Moderate Current Severity: Mild Pain Intensity: 2 Pain Scale Used: 0-10 Numeric Chest Pain Radiates: Yes Chest Pain Radiates To:: Shoulder, Epigastric Character: Heaviness Aggravating Factor(s): Nothing Alleviating Factor(s): Medication Associated Signs and Symptoms: Positive: Chest Pain, Fever. Negative: Nausea, Vomiting, Other: - Loss of appetite - Allergy/Home Medications Allergies/Adverse Reactions: Allergies Allergy/AdvReac Type Severity Reaction Status Date / Time Iodinated Contrast Media Allergy Severe respiratory/"thought Verified 08/24/19 20:15 [Iodinated Contrast- Oral I was and IV Dye] going to " sumatriptan [From Imitrex] Allergy Severe "throat Verified 08/24/19 20:15 feels tight" [id number] Antimigraine Allergy See Comment Verified 08/24/19 20:15 Agents COFFEE Allergy Nausea Uncoded 08/24/19 20:15 PMH/Surg Hx/FS Hx/Imm Hx Endocrine/Hematology History: Denies: Hx Diabetes Cardiovascular History: Reports: Hx Hypertension Denies: Hx Pacemaker/ICD History: Denies: Hx Renal Disease Sensory History: Denies: Hx Hearing Aid Psychiatric History: Denies: Hx Panic Disorder - Cancer History Hx Chemotherapy: No Hx Radiation Therapy: No - Surgical History Surgery Procedure, Year, and Place: Cholecystectomy, 09/23/18, [place]; Uterine Ablation, 2007, [place]; Right Breast Fibroid, 1995, [place]; [place], 1983 ,[place] Infectious Disease History: No Infectious Disease History: Denies: Hx Clostridium Difficile, Hx Hepatitis, Hx Human Immunodeficiency Virus (HIV), Hx of Known/Suspected MRSA, Hx Shingles, Hx Tuberculosis, Hx Known/ Suspected VRE, Hx Known/Suspected VRSA, History Other Infectious Disease, Traveled Outside the in Last 30 Days - Family History Known Family History: Positive: Hypertension, Other - hypertension - Social History Occupation: Employed Full-time Alcohol Use: Rare Substance Use Type: Reports: None Smoking Status (MU): Never Smoked Tobacco Review of Systems Positive: Fever. Negative: Other - loss of appetite Positive: Chest Pain Negative: Vomiting, Nausea Negative: dysuria, pain All Other Systems Reviewed And Are Negative: Yes Physical Exam - Summary Physical Exam Summary: Appearance: Well-appearing, Well-nourished, lying in bed comfortably Skin: Warm, dry, no obvious rash Eyes: sclera anicteric, no conjunctival pallor ENT: mucous membranes moist, pharynx appears normal Neck: Supple, nontender Respiratory: Clear to auscultation, no signs of respiratory distress Cardiovascular: Normal S1, S2. No murmurs. Normal distal pulses in tibial and radial bilaterally. Abdomen: Soft, nontender, normal active bowel sounds present Musculoskeletal: Normal, Strength/ROM Intact Neurological: A&Ox3, awake and alert, mentation is normal, speech is fluent and appropriate Psychiatric: affect is normal, does not appear anxious or depressed Triage Information Reviewed: Yes Vital Signs On Initial Exam: Initial Vitals Temp Pulse Resp BP Pulse Ox 99.1 F 65 16 145/78 99 08/24/19 20:05 08/24/19 20:05 08/24/19 20:05 08/24/19 20:05 08/24/19 20:05 Vital Signs Reviewed: Yes Procedures - Sedation Patient Received Moderate/Deep Sedation with Procedure: No Diagnostics - Vital Signs Vital Signs Temp Pulse Resp BP Pulse Ox 08/24/19 20:05 99.1 F 65 16 145/78 99 - Laboratory Lab Results: Lab Results 08/24/19 08/24/1908/24/19 Range/Units 20:18 20:22 20:22 WBC 6.1 (3.5-10.8) 10^3/uL RBC 4.59 (3.70-4.87) 10^6 /uL Hgb 13.8 (12.0-16.0) g/dL Hct 40 (35-47) % MCV 88 (80-97) fL MCH 30 (27-31) pg MCHC 34 (31-36) g/dL RDW 13 (10-15) % Plt Count 264 (150-450) 10^3/uL MPV 9.4 (7.4-10.4) fL Neut % (Auto) 45.2 % Lymph % (Auto) 43.2 % [place] % (Auto) 8.0 % Eos % (Auto) 3.2 % Baso % (Auto) 0.4 % Absolute Neuts (auto) 2.7 (1.5-7.7) 10^3/ul Absolute Lymphs (auto) 2.6 (1.0-4.8) 10^3/ul Absolute Monos (auto) 0.5 (0-0.8) 10^3/ul Absolute Eos (auto) 0.2 (0-0.6) 10^3/ul Absolute Basos (auto) 0.0 (0-0.2) 10^3/ul Absolute Nucleated RBC 0.0 10^3/ul Nucleated RBC % 0.0 INR (Anticoag Therapy) 1.03 (0.82-1.09) Sodium 139 (135-145) mmol/L Potassium 4.2 (3.5-5.0) mmol/L Chloride 103 (101-111) mmol/L Carbon Dioxide 31 (22-32) mmol/L Anion Gap 5 (2-11) mmol/L BUN 12 (6-24) mg/dL Creatinine 0.64 (0.51-0.95) mg/dL Est GFR ( Amer) 115.3 (>60) Est GFR (Non-Af Amer) 95.3 (>60) BUN/Creatinine Ratio 18.8 (8-20) Glucose 82 (70-100) mg/dL Calcium 9.4 (8.6-10.3) mg/dL Total Bilirubin 0.90 (0.2-1.0) mg/dL AST 23 (13-39) U/L ALT 22 (7-52) U/L Alkaline Phosphatase 77 (34-104) U/L Troponin I 0.00 (<0.04) ng/mL Total Protein 7.0 (6.4-8.9) g/dL Albumin 4.5 (3.2-5.2) g/dL Globulin 2.5 (2-4) g/dL Albumin/Globulin Ratio 1.8 (1-3) Result Diagrams: 08/24/19 20:22 08/24/19 20:18 Lab Statement: Any lab studies that have been ordered have been reviewed, and results considered in the medical decision making process. - EKG 2005 Cardiac Rate: NL EKG Rhythm: Sinus Rhythm Summary of EKG Findings: EKG at 2005 reveals NSR at 64 BPM, P waves, QRS complex , and T waves are within normal limits, T waves and intervals are normal, no ischemic changes. This is a normal EKG. ED Physician has reviewed and interpreted this EKG. Re-Evaluation - Re-Evaluation First Eval Re-Evaluation Time: 21:58 Comment: Discussed results and plan of care with pt. Chest Pain Course/Dx - Course Course Of Treatment: This patient is a 58 year old F presenting to [facility] accompanied by with a chief complaint of central chest/epigastric pain radiating to right side of chest to shoulder blades since 08/22/19 at 1500. Pt reports she was eating onion rings when the pain began. She thought she had indigestion and had tums, but the CP did not reside. At night, while sleeping there was no CP. When she woke up the pain returned, and then the pain resided throughout the day. Her pain is better today than 08/23/19. Patient reports normal urination, and slight fever. Patient denies loss of appetite, vomiting, nausea. Pt has had gall bladder removal and high blood pressure. Pt has no Hx of stomach issues. Pt has FHx of skin cancer. Blood work obtained. Troponin I is 0.00. Lipase is 37. EKG at 2005 reveals NSR at 64 BPM, P waves, QRS complex , and T waves are within normal limits, T waves and intervals are normal, no ischemic changes. This is a normal EKG. ED Physician has reviewed and interpreted this EKG. Patient will be discharged. The patient is agreeable with this plan. - Diagnoses Provider Diagnoses: Epigastric pain Discharge ED - Sign-Out/Discharge Documenting (check all that apply): Patient Departure - Discharge - Discharge Plan Condition: Good Disposition: HOME Patient Education Materials: Acute Abdominal Pain (ED) Referrals: Eddie Kaur MD [Primary Care Provider] - 1 Week Additional Instructions: Your blood work and EKG did not show any sign of heart trouble as the cause of your symptoms. I did add on a test looking at pancreas problems, though I think that is unlikely. I will contact you if this test is abnormal, as that would require more immediate care. Otherwise, I would recommend a followup visit with your doctor within a week's time. I think taking the pantoprazole as an empiric trial is a reasonable thing, especially as you seem to be getting somewhat better since starting it. - Billing Disposition and Condition Condition: GOOD Disposition: Home - Attestation Statements Document Initiated by Angelo: Yes Documenting Scribe: Aarti Lebron Provider For Whom Angelo is Documenting (Include Credential): Tello Luna MD Scribe Attestation: IAarti, scribed for Tello Luna MD on 08/26/19 at 1948. Scribe Documentation Reviewed: Yes Provider Attestation: The documentation as recorded by the Aarti menjivar accurately reflects the service I personally performed and the decisions made by me, Tello Luna MD Status of Scribe Document: Viewed
[2019-08-24 22:43] VITALS: BP 176/93
== END 2019-08-24 22:10 | disposition home or self-care (01) ==
LOC: ED 20:03
DX: R10.13 Epigastric pain (principal); I10 Essential (primary) hypertension; Z90.49 Acquired absence of other specified parts of digestive tract; Z88.8 Allergy status to other drugs, medicaments and biological substances; Z91.041 Radiographic dye allergy status; Z79.899 Other long term (current) drug therapy
CPT/HCPCS: 36415; 80053; 83690; 84484; 85025; 85610; 93005; 99282

== ENCOUNTER 2019-09-17 11:14 | Emergency (ER) | payer BC ==
[2019-09-17 12:10] VITALS: BP 138/88
--- NOTE | 2019-09-17 13:25 | UC ---
Throat Pain/Nasal Deshaun HPI - HPI Summary HPI Summary: 58 year old female presents with 3 day history of nasal congestion, sinus pressure, post-nasal drip, sore throat, and occasional productive cough for yellow-green sputum. States has been developing a low grade fever in the evenings. Denies ear pain, dysphagia, chest pain, or SOB. - History of Current Complaint Chief Complaint: UCRespiratory Stated Complaint: COUGH,CONGESTION,RICHARDS Time Seen by Provider: 09/17/19 13:10 Hx Obtained From: Patient Hx Last Menstrual Period: N/A Pain Intensity: 3 - Allergies/Home Medications Allergies/Adverse Reactions: Allergies Allergy/AdvReac Type Severity Reaction Status Date / Time Iodinated Contrast Media Allergy Severe respiratory/"thought Verified 09/17/19 12:06 [Iodinated Contrast- Oral I was and IV Dye] going to " sumatriptan [From Imitrex] Allergy Severe "throat Verified 09/17/19 12:06 feels tight" [id number] Antimigraine Allergy See Comment Verified 09/17/19 12:06 Agents COFFEE Allergy Nausea Uncoded 09/17/19 12:06 PMH/Surg Hx/FS Hx/Imm Hx Cardiovascular History: Hypertension GI/ History: Gastroesophageal Reflux - Surgical History Surgical History: Yes Surgery Procedure, Year, and Place: Cholecystectomy, 09/23/18, [place]; Uterine Ablation, 2007, [place]; Right Breast Fibroid, 1995, [place]; [place], 1983 ,[place] - Family History Known Family History: Positive: Hypertension, Other - hypertension - Social History Occupation: Employed Full-time Lives: With Family Alcohol Use: Rare Substance Use Type: None Smoking Status (MU): Never Smoked Tobacco - Immunization History Most Recent Influenza Vaccination: no Review of Systems All Other Systems Reviewed And Are Negative: Yes Constitutional: Positive: Fever Eyes: Negative: Drainage, Eye Redness ENT: Positive: Sore Throat, Nasal Discharge, Sinus Congestion, Sinus Pain/ Tenderness. Negative: Ear Ache Respiratory: Positive: Cough. Negative: Shortness Of Breath Cardiovascular: Negative: Palpitations, Chest Pain Gastrointestinal: Positive: Negative Genitourinary: Positive: Negative Musculoskeletal: Positive: Negative Neurological: Positive: Negative Is Patient Immunocompromised?: No Physical Exam - Summary Physical Exam Summary: GENERAL APPEARANCE: Well developed, well nourished, alert and cooperative, and appears to be in no acute distress. EYES: Conjunctiva clear. No drainage. EARS: External auditory canals and tympanic membranes clear, hearing grossly intact. NOSE: Moderate nasal congestion. No nasal discharge. Frontal sinus tenderness. THROAT: Pharyngeal erythema with post-nasal drip. No tonsilar inflammation, swelling, exudate, or lesions. Uvula midline. NECK: Neck supple, non-tender without lymphadenopathy. CARDIAC: Normal S1 and S2. No S3, S4 or murmurs. Rhythm is regular. There is no peripheral edema, cyanosis or pallor. Extremities are warm and well perfused. Capillary refill is less than 2 seconds. Peripheral pulses intact. LUNGS: Clear to auscultation without rales, rhonchi, wheezing or diminished breath sounds. Dry, non-productive cough. ABDOMEN: Positive bowel sounds. Soft, nondistended, nontender. No guarding or rebound. No masses or hepatosplenomegally. MUSKULOSKELETAL: ROM intact to all extremities. No joint erythema or tenderness. Normal muscular development. Normal gait. SKIN: Skin normal color, texture and turgor with no lesions or eruptions. Triage Information Reviewed: Yes Vital Signs: Initial Vital Signs Temp 98.8 F 09/17/19 12:03 Pulse 76 09/17/19 12:03 Resp 16 09/17/19 12:03 BP 138/88 09/17/19 12:03 Pulse Ox 100 09/17/19 12:03 Vital Signs Reviewed: Yes Throat Pain/Nasal Course/Dx - Course Course Of Treatment: 58 year old female presents with 3 day history of nasal congestion, sinus pressure, post-nasal drip, sore throat, and occasional productive cough for yellow-green sputum. States has been developing a low grade fever in the evenings. Denies ear pain, dysphagia, chest pain, or SOB. Afebrile. VSS. Patient had moderate nasal congestion, frontal sinus tenderness, pharyngeal erythema with PND, no tonsilar swelling or exudate, clear bilateral breath sounds, dry non-productive cough, and otherwise unremarkable exam. Recommending symptomatic treatment for a viral URI. She is to follow up with her PCP in 3-5 days if symptoms do not improve. Anticipatory guidance and warning symptoms reviewed with patient. Verbalizes understanding and agrees with POC. - Differential Dx/Diagnosis Differential Diagnosis/HQI/PQRI: Influenza, Pharyngitis, Sinusitis, URI, Other - pneumonia Provider Diagnosis: Viral URI with cough Discharge ED - Sign-Out/Discharge Documenting (check all that apply): Patient Departure All imaging exams completed and their final reports reviewed: No Studies - Discharge Plan Condition: Stable Disposition: HOME Patient Education Materials: Upper Respiratory Infection (ED) Referrals: Eddie Kaur MD [Primary Care Provider] - 3 Days Additional Instructions: Your history and exam are consistent with a viral upper respiratory infection. Viral infections do not respond to antibiotics and are limited to the treatment of symptoms. Viral infections typically run their course in 7-10 days. Drink plenty of fluids to avoid dehydration especially if you are running any fever. Use a saline rinse kit such as Neti Pot or NeilMed at least twice a day to help thin secretions and promote drainage of the sinuses. Use fluticasone (Flonase) nasal spray 2 sprays each nostril once daily. Take over the counter acetaminophen (Tylenol) or ibuprofen (Advil, Motrin) according to directions as needed for pain or fever. Use salt water gargles several times a day if you have a sore throat. You may also use Chloraseptic spray or Cepacol lonzenges according to directions which contain a numbing medication and can provide some temporary relief from your sore throat. Follow up with your primary care provider in 3-5 days if symptoms persist. Seek immediate medical attention in the emergency room if you have fever greater than 100.5 F despite taking acetaminophen or ibuprofen, have chest pain , difficulty breathing, are unable to swallow, or have any worsening of symptoms. - Billing Disposition and Condition Condition: STABLE Disposition: Home - Attestation Statements Provider Attestation: I was available for consult. This patient was seen by the RUTHANN. The patient was not presented to , seen by or examined by hi -Carrillo Catrer MD
== END 2019-09-17 13:48 | disposition home or self-care (01) ==
LOC: UCCORT 11:14
DX: J06.9 Acute upper respiratory infection, unspecified (principal); R05 Cough; I10 Essential (primary) hypertension; Z91.041 Radiographic dye allergy status; Z88.1 Allergy status to other antibiotic agents; Z88.8 Allergy status to other drugs, medicaments and biological substances
CPT/HCPCS: 99211; G0463